=== PATIENT | male | born 1965 | race African-American/Black ===

== ENCOUNTER 2017-09-04 03:00 | Observation (INO) | payer OTHER ==
[2017-09-04] MEDS ORDERED: Furosemide 40 MG/4 ML VIAL ONE (04:37)
--- NOTE | 2017-09-04 06:02 | HP ---
DATE OF ADMISSION: 09/04/2017 TIME OF SERVICE: 0430 PRIMARY CARE PHYSICIAN: Dr. Kelby Ndiaye PRIMARY SOFTWARE DEPLOYMENT ENGINEER: Dr. Sudarshan Ontiveros CHIEF COMPLAINT: Shortness of breath. HISTORY OF PRESENT ILLNESS: Mr. Lyons is a 51-year-old gentleman with a history of pneumonia in t he past, end-stage renal disease, dialyzed Monday, Monday and Monday at [facility] in [place] as well as paroxysmal atrial fibrillation, hypothyroidism, hypertension, and gout, presented to the [facility] in [place] complaining of shortness of breath. The patient states he was having shortness of breath for about 24 hours. He was seen in the [facility] ER, diagnosed with pneumonia, given Rocephin 2 grams. CBC and CMP were normal for the end-stage renal disease, he was subsequently transferred here. On arrival, he was reportedly 99% on room air, labs were reviewed. A chest x-ray showed bilateral op acities consistent with volume overload and I was called for admission. On my evaluation, the patient did complain of cough that is nonproductive. No hemoptysis. He had be en tolerating dialysis regularly as scheduled without any truncated visits. No other current complai nts. PAST MEDICAL HISTORY: 1. End-stage renal disease, on hemodialysis Monday, Monday, Monday in [place] at [facility]. 2. Atrial fibrillation, paroxysmal. 3. Hypothyroidism. 4. Hypertension. 5. Gout, it has been a long time since his last flare. 6. Benign prostatic hypertrophy. PAST SURGICAL HISTORY: 1. Include DC cardioversion for atrial fibrillation. 2. Right forearm fistula creation. HOME MEDICATIONS: 1. Allopurinol 100 mg p.o. daily. 2. Dialyvite 1/100 1 p.o. daily. 3. Metoprolol tartrate 50 mg p.o. b.i.d. 4. Levothyroxine 25 mcg daily. 5. Nifedipine 60 mg daily. 6. Terazosin 0.8 mg p.o. at bedtime. 7. Renvela 800 mg p.o. t.i.d. with meals. ALLERGIES: NKDA. FAMILY HISTORY: Negative for clotting or bleeding disorder, no immune dysfunction, no premature jenny nary disease. SOCIAL HISTORY: No for habits x3. REVIEW OF SYSTEMS: A 10-point review of systems was performed, negative for all systems except as pe r HPI. PHYSICAL EXAMINATION: VITAL SIGNS: Temperature 98.4, pulse 105, blood pressure 163/91, respiratory 20, satting 89% on room air, 94% on 2 liters, 100% on 2 liters when I was in there. GENERAL: He is awake. He is alert. He is oriented x3, well-developed, well-nourished Ameri can male appears to be in no distress. HEENT: Normocephalic, atraumatic. Pupils equal, round, react to light bilaterally. Mucous membrane s are moist. There are no visible lesions or thrush. NECK: Supple. He has no lymphadenopathy, no JVD, no thyromegaly. No carotid bruit. LUNGS: Clear to auscultation bilaterally anteriorly. Posteriorly he has some pain bibasilar crackle s and crackles in the bilateral upper lung arellano. There are no wheezes, no rales, no rhonchi. No p rolonged expiratory phase CARDIOVASCULAR: There is a faint 2/6 systolic ejection murmur at the right upper sternal border. EXTREMITIES: Show no cyanosis, no clubbing, he has got trace pedal edema bilaterally. He has got 1+ dorsalis pedis, and posterior tibial pulses bilaterally. SKIN: Warm, moist, and well perfused. He has no other rashes or lesions. MUSCULOSKELETAL: Normal to inspection. Large joints appear normal. There is no palpable effusion. No inflammation. NEUROLOGIC: Cranial nerves II-XII are grossly intact, he has normal 5/5 strength in all 4 extremitie s. There are no focal deficits and normal speech pattern. LABORATORY DATA: Sodium 141, potassium 4.0, chloride 100, bicarbonate 25, BUN 61, creatinine 12.17, calcium 9.3, glucose 103. Liver functions are completely within normal limits. CBC showed white blood cell count of 9.9, hemoglobin 10.5, hematocrit is 32.3, platelet count is 238, 000. He has normal differential to his white count. VBG showed pH 7.5 with a pCO2 of 34, pO2 of 46 and bicarbonate of 46. CK-MB normal 2.2, troponin I 0.049. INR is 1.0. Chest x-ray showed volume overload with cephalization. I do not see any discrete infiltrates at the bases and the costophrenic angles are spared. ASSESSMENT AND PLAN: 1. End-stage renal disease, on hemodialysis Monday, Monday, Monday. 2. Acute hypoxemic respiratory failure. 3. Volume overload. 4. Hypertension. 5. Paroxysmal atrial fibrillation, currently in sinus rhythm. 6. Hypothyroidism. 7. Benign prostatic hypertrophy. 8. Gout. Continue his home medications, I alerted Dr. Ontiveros of the patient's presence for dialysis today. He s hould be able to go home after dialysis. I have not continued antibiotics, he did receive a dose in the [place] ER.
[2017-09-04] MEDS ORDERED: Ondansetron HCl/PF 4 MG/2 ML Vial IVP PRN ×2 (06:03→06:11)
[2017-09-04] MEDS ORDERED: Ondansetron ODT 4 MG TAB SL PRN (06:03)
[2017-09-04] MEDS ORDERED: Acetaminophen 325 MG TAB PO PRN (06:11)
[2017-09-04] MEDS ORDERED: HYDROcodone/Acetaminophen 5/325 mg Tablet PO PRN (06:11)
[2017-09-04] MEDS ORDERED: Ondansetron ODT 4 MG TAB PO PRN (06:11)
[2017-09-04] MEDS ORDERED: Levothyroxine Sodium 25 MCG TAB PO SCH (06:15)
[2017-09-04 06:24] VITALS: BMI 27.3
[2017-09-04] MEDS ORDERED: Famotidine 20 MG TAB PO SCH (09:00)
[2017-09-04] MEDS ORDERED: Metoprolol Tartrate 50 MG TAB PO SCH (09:00)
[2017-09-04] MEDS ORDERED: NIFEdipine XL 60 MG TAB PO SCH (09:00)
[2017-09-04] MEDS: Sevelamer Carbonate 800 MG TAB PO SCH ×2 (09:00→12:49)
[2017-09-04] MEDS ORDERED: Allopurinol 100 MG TAB PO SCH (09:00)
[2017-09-04] MEDS ORDERED: Heparin 10,000 UNITS/ 10 ML VIAL ONE (10:00)
--- NOTE | 2017-09-04 12:01 | CON ---
DATE OF CONSULTATION: 09/04/2017 REFERRING PHYSICIAN: Dr. Eduardo Ochoa REASON FOR CONSULT: End-stage renal disease evaluation and care. REASON FOR ADMISSION: Shortness of breath. HISTORY OF PRESENT ILLNESS: This is a 51-year-old male with a history of atrial fibrillation, hypoth yroidism, hypertension, gout, came to the hospital with shortness of breath. The patient gets dialys is Monday, Monday, and Monday. Last dialysis was Monday and he even left 2.5 below his dry weight . He denies any increased fluid intake over the weekend. He is usually reliable and does not have a huge fluid gain between dialysis. The patient was initially thought to have a pneumonia, but chest x-ray is having bilateral fluid overload and is getting dialysis today and is due for dialysis this e vening. No fever reported. He has a dry cough. No other symptoms, no hemoptysis. No chills. No s kin rash. PAST MEDICAL HISTORY: End-stage renal disease, atrial fibrillation, hypothyroidism, hypertension, g out, BPH. PAST SURGICAL HISTORY: DC cardioversion, a fistula placement. HOME MEDICATIONS: Lipitor, Dialyvite, metoprolol, levothyroxine, nifedipine, terazosin. ALLERGIES: No known drug allergies. FAMILY HISTORY: No history of any kidney disease. SOCIAL HISTORY: No smoking, alcohol, drug abuse. REVIEW OF SYSTEMS: The following complete review of systems was negative, unless otherwise mentioned in the HPI or below: Constitutional: Weight loss or gain, ability to conduct usual activities. Skin: Rash, itching. Eyes: Double vision, pain. ENT/Mouth: Nose bleeding, neck stiffness, pain, tenderness. Cardiovascular: Palpitations, dyspnea on exertion, orthopnea. Respiratory: Shortness of breath, wheezing, cough, hemoptysis, fever or night sweats. Gastrointestinal: Poor appetite, abdominal pain, heartburn, nausea, vomiting, constipation, or diarrhea. Genitourinary: Urgency, frequency, dysuria, nocturia. Musculoskeletal: Pain, swelling. Neurologic/Psychiatric: Anxiety, depression. Allergy/Immunologic: Skin rash, bleeding tendency. PHYSICAL EXAMINATION: GENERAL: This is a well-built male in no apparent distress. VITAL SIGNS: Temperature 98.1, pulse 90, respirations 18, blood pressure 140/76. HEENT: Atraumatic, normocephalic. Oral mucosa is moist. NECK: Supple, no masses. CARDIOVASCULAR: S1, S2 heard. Rate and rhythm regular. RESPIRATORY: Had bilateral lower lobe crackles. GASTROINTESTINAL: Abdomen is soft. MUSCULOSKELETAL: No tenderness. No edema. SKIN: No rash. NEUROLOGIC: Alert, awake. PSYCHIATRIC: Normal mood and affect. LABORATORY: Hemoglobin is 10.5, potassium 4.0, BUN 61, creatinine is 12.1. ASSESSMENT AND PLAN: 1. End-stage renal disease, on hemodialysis Monday, Monday, and Monday with possible fluid overlo ad. Plan is to have dialysis. Patient was seen during dialysis, tolerating well. 2. Acute hypoxic respiratory failure most likely from for fluid overload. 3. Volume overload. 4. Hypertension. 5. Anemia. 6. Edema, controlled. Plan is to have dialysis today. Advised to limit fluid intake and will follow.
--- NOTE | 2017-09-04 14:45 | DIS ---
DATE OF ADMISSION: 09/04/2017 DATE OF DISCHARGE: 09/04/2017 PRIMARY CARE PHYSICIAN: Kelby Ndiaye M.D. DISCHARGE DIAGNOSIS: Volume overload. CONSULTATION DURING THIS HOSPITALIZATION: Nephrology, Dr. Andrew. HOSPITAL COURSE: Mr. Lyons is a pleasant 51-year-old gentleman who was admitted to [facility] on 09/04/2017 for volume overload. Please refer to the admitting physician's his tory and physical note for further details. He was seen by Nephrology Service and underwent hemodial ysis. He improved symptomatically. He is being discharged home in a stable condition. No changes were made to his preadmission home medications. Many thanks for allowing me to participate in your patient's care. Please feel free to contact me wi th any questions or concerns. DISCHARGE DESTINATION: Home.
[2017-09-04 16:35] VITALS: BP 141/81; TEMP 97.4
[2017-09-04] MEDS ORDERED: Terazosin HCl 1 MG CAP PO SCH (21:00)
[2017-09-05] MEDS ORDERED: Levothyroxine Sodium 25 MCG TAB PO SCH (06:00)
== END 2017-09-04 17:18 | disposition home or self-care (01) ==
LOC: ERS 03:00 → 2SW 04:40
PROVIDERS: ADMIT Internal Medicine Infectious Disease; ATTEND Internal Medicine Infectious Disease
DX: E87.70 Fluid overload, unspecified (principal); I12.0 Hypertensive chronic kidney disease with stage 5 chronic kidney disease or end stage renal disease; N18.6 End stage renal disease; I48.0 Paroxysmal atrial fibrillation; E03.9 Hypothyroidism, unspecified; M10.9 Gout, unspecified; N40.0 Benign prostatic hyperplasia without lower urinary tract symptoms; J96.01 Acute respiratory failure with hypoxia; Z79.899 Other long term (current) drug therapy; Z99.2 Dependence on renal dialysis
CPT/HCPCS: 90935; 93005; 96374; G0257; J1644; J1940

== ENCOUNTER 2017-09-28 15:02 | Emergency (ER) | payer OTHER ==
[2017-09-28] MEDS ORDERED: Metoprolol Tartrate 5 MG/5 ML VIAL ONE ×3 (15:48→16:00)
[2017-09-28 15:57] LABS: #Eosinphils 0.2 thou/uL (0.0-0.7); #Lymphocytes 1.4 thou/uL (1.20-3.40); #Monocytes 0.5 thou/uL (0.11-0.59); #Neutrophils 4.3 thou/uL (1.40-6.50); %Basophils 0.4 % (0.0-1.0); %Lymphocytes 21.6 % (21.0-51.0); %Monocytes 8.3 % (0.0-10.0); %Neutrophils 66.7 % (42.0-75.0); Hemoglobin 9.9 g/dL (14.0-18.0); Mean Corpuscular Hemoglobin 28.8 pg (27.0-31.0); Mean Corpuscular Volume 87.2 fl (80.0-94.0); Mean Platelet Volume 8.3 fL (7.4-10.4); Platelet Count 237 thou/uL (130-400); RBC Distribution Width 18.7 % (11.5-14.5); Red Blood Cell (RBC) Count 3.43 mill/uL (4.70-6.10); White Blood Cell (WBC) Count 6.5 thou/uL (4.8-10.8)
[2017-09-28 16:19] LABS: Anion Gap 17 mmol/L (10-20); BUN (Urea Nitrogen) 47 mg/dL (8.9-20.6); CK (CPK) 341 U/L (30-200); Calc. Creatinine Clearance 0 mL/min (70-130); Carbon Dioxide 33 mmol/L (22-29); Chloride 96 mmol/L (98-107); Estimated GFR-MDRD 7; Glucose 125 mg/dL (70-105); Magnesium 2.2 mg/dL (1.6-2.6); Potassium 3.9 mmol/L (3.5-5.1); Sodium 142 mmol/L (136-145)
[2017-09-28 16:23] LABS: CKMB 5.3 ng/mL (0-6.6); Troponin I 0.078 ng/mL (< 0.028)
== END 2017-09-28 17:31 | disposition home or self-care (01) ==
LOC: ERS 15:02
DX: I48.91 Unspecified atrial fibrillation (principal); E03.9 Hypothyroidism, unspecified; I10 Essential (primary) hypertension; M10.9 Gout, unspecified; Z79.899 Other long term (current) drug therapy
CPT/HCPCS: 80048; 82550; 82553; 83735; 84443; 84484; 85025; 93005; 96361; 96374

== ENCOUNTER 2017-10-23 11:10 | Inpatient (IN) | payer OTHER ==
[2017-10-23] MEDS ORDERED: Diltiazem 125 MG/25 ML ONE (11:44)
--- NOTE | 2017-10-23 14:06 | HP ---
PRIMARY CARE PHYSICIAN: Kelby Ndiaye M.D. REASON FOR ADMISSION: Transfer from [facility] for atrial fibrillation with RVR and dyspnea. HISTORY OF PRESENT ILLNESS: A 51-year-old -[place] male who has underlying history of end-st age renal disease on hemodialysis Monday, Monday, and Monday as well as history of paroxysmal atri al fibrillation and hypertension who initially went to [facility] for evaluation of generalized weakness, shortness of breath. Patient supposed to get dialysis today, but before he get s dialysis, he was feeling more weak, more short of breath and that is why he decided to go to the [facility] emergency room at [place] where he was found with atrial fibrillation with RVR. He was eval uated with routine blood tests and found with elevated BNP. The patient was transferred to our emerg ency room. His rate was under control. He did not require any specific medication. At [facility], he was given aspirin and Lovenox 1 mg per kg, nitroglycerin 3 times was given. When he presented to our emergency room, he was hemodynamically stable. He was having fluctuating he art rate. Patient is following Dr. Kenny as an outpatient basis. Today, he was not able to go fo r his regular dialysis schedule. REVIEW OF SYSTEMS: The following complete review of systems was negative, unless otherwise mentioned in the HPI or below: Constitutional: Weight loss or gain, ability to conduct usual activities. Skin: Rash, itching. Eyes: Double vision, pain. ENT/Mouth: Nose bleeding, neck stiffness, pain, tenderness. Cardiovascular: Palpitations, dyspnea on exertion, orthopnea. Respiratory: Shortness of breath, wheezing, cough, hemoptysis, fever or night sweats. Gastrointestinal: Poor appetite, abdominal pain, heartburn, nausea, vomiting, constipation, or diarr hea. Genitourinary: Urgency, frequency, dysuria, nocturia. Musculoskeletal: Pain, swelling. Neurologic/Psychiatric: Anxiety, depression. Allergy/Immunologic: Skin rash, bleeding tendency. Please see my HPI for pertinent positive and negative. All other review of systems reviewed and nega tive except as mentioned in the HPI. PAST MEDICAL HISTORY: ESRD on hemodialysis Monday, Monday, Monday in medicine at [facility], hyperten gabriela, hypothyroidism, gout, benign enlargement of prostate, paroxysmal atrial fibrillation, anemia of renal disease. PAST SURGICAL HISTORY: DC cardioversion for atrial fibrillation and right forearm AV fistula. PAST PSYCHIATRIC HISTORY: Reviewed and negative. ALLERGIES: No known drug allergy. FAMILY HISTORY: No strong family history of premature coronary artery disease, stroke or cancer. SOCIAL HISTORY: Patient lives at home with family. No history of tobacco, alcohol or illicit drug a buse. CURRENT HOME MEDICATIONS: Allopurinol 100 mg p.o. daily, vitamin B complex 1 tablet p.o. daily, Synt hroid 25 mcg p.o. daily, metoprolol 50 mg p.o. b.i.d., Procardia-XL 60 mg p.o. daily, terazosin 2 mg p.o. at bedtime. EMERGENCY ROOM COURSE: At [facility], patient has received 3 nitroglycerin sublingu als and Lovenox 1 mg per kg. PHYSICAL EXAMINATION: VITAL SIGNS: On arrival to our emergency room, blood pressure 126/98, pulse 119 irregular, respirato ry rate 22, temperature 97.8, saturation 97% on room air, weight 83.5 kilograms. GENERAL: Patient is currently alert, awake, no obvious acute distress. HEAD: Normocephalic, atraumatic. EYES: Pupils round, reactive to light. Extraocular muscle intact. ENT: Oropharynx within normal limit. Moist mucous membranes. No oral lesion, no pharyngeal erythem a, no exudate. NECK: Supple, no JVD, no thyromegaly, no carotid bruit, no jugular venous distention. LUNGS: Clear to auscultation without any rhonchi or rales. CARDIAC: S1, S2, irregularly irregular. No murmur elicited, no gallop, no rub. ABDOMEN: Soft, bowel sounds present, nontender, nondistended. No organomegaly, no mass, no suprapub ic tenderness. BACK: Examination unremarkable, no CVA tenderness. EXTREMITIES: Upper extremity passive movement of all joints are normal. Lower extremities: No dena a. Good peripheral pulsation. SKIN: No skin rash. HEMATOLOGICAL SYSTEM: No lymphadenopathy. PSYCHIATRIC: Normal affect. IMAGING DATA AND SIGNIFICANT LABORATORY DATA: EKG showing atrial fibrillation with rapid ventricular response. CBC: WBC 5.3, hemoglobin 11.2, and platelet 169. INR 1.1. BMP: Sodium 140, potassium 5.0, chloride 97, carbon dioxide 23, anion gap 25, BUN 56, creatinine 12.35, glucose 120, calcium 10. 0, and magnesium 2.2. LFT: AST 36, ALT 69, alkaline phosphatase 91, albumin 3.5, CK 80, CK-MB 1.9, troponin 0.044. BNP 3293. Urinalysis: Leukocyte esterase small. ASSESSMENT AND PLAN/IMPRESSION: 1. Atrial fibrillation with rapid ventricular response, paroxysmal atrial fibrillation, currently ra te controlled. 2. Dyspnea, multifactorial etiology. 3. End-stage renal disease on hemodialysis, missed hemodialysis today. 4. Anemia of renal disease. 5. Elevated troponin, chronically elevated. 6. Asymptomatic urinary tract infection. 7. Benign enlargement of prostate. 8. Hypertension. 9. Hypothyroidism. 10. Gout. PLAN: Observation to telemetry floor. Nephrology will be consulted for dialysis. We will continue metoprolol 50 mg p.o. b.i.d. We will resume home medication while in hospital including allopurinol 100 mg t.i.d. We will also continue Procardia-XL 60 mg p.o. daily, Hytrin 2 mg p.o. at bedtime and S ynthroid 25 mcg p.o. daily. We will observe on telemetry floor. We will also start Cipro 250 mg p.o . b.i.d. for asymptomatic UTI. We will send urine culture. We will do serial cardiac enzymes and we will repeat labs tomorrow. If patient is doing very well overnight, then we will consider dischargi ng him home tomorrow. We will obtain echocardiography during this admission. Plan of care discussed with the patient in detail.
[2017-10-23] MEDS ORDERED: Acetaminophen 325 MG TAB PO PRN (14:10)
[2017-10-23] MEDS ORDERED: Zolpidem Tartrate 5 MG TAB PO PRN (14:10)
[2017-10-23] MEDS ORDERED: Mag-Al 1200 mg/1200 mg/30 ML UDCUP PO PRN (14:10)
[2017-10-23] MEDS ORDERED: Senokot 8.6 MG TAB PO PRN (14:10)
[2017-10-23] MEDS ORDERED: Ondansetron HCl/PF 4 MG/2 ML Vial IVP PRN (14:10)
[2017-10-23] MEDS ORDERED: Ondansetron ODT 4 MG TAB PO PRN (14:10)
[2017-10-23] MEDS ORDERED: Milk Of Magnesia 30 ML UDCUP PO PRN (14:10)
[2017-10-23] MEDS ORDERED: Loperamide HCl 2 MG CAP PO PRN (14:10)
[2017-10-23] MEDS ORDERED: HYDROcodone/Acetaminophen 5/325 mg Tablet PO PRN (14:10)
[2017-10-23 14:23] LABS: Troponin I 0.054 ng/mL (< 0.028)
[2017-10-23 14:47] VITALS: BMI 28.5
--- NOTE | 2017-10-23 16:21 | CON ---
DATE OF CONSULTATION: 10/23/2017 NEPHROLOGY CONSULTATION REASON FOR CONSULTATION: Congestive heart failure and end-stage renal disease. HISTORY OF PRESENT ILLNESS: This is a very pleasant 51-year-old gentleman who presented for dialysis . The patient was noted to be in atrial fibrillation and had severe congestive heart failure and sev ere dyspnea. The patient can give no further detailed history. PAST MEDICAL HISTORY: End-stage renal disease, on hemodialysis Monday, Monday, Monday, hypertensi on, atrial fibrillation, anemia, renal disease, history of cardioversion, right AV fistula, tunneled dialysis catheter, gout. SOCIAL HISTORY: No alcohol or drug use. FAMILY HISTORY: Negative for ESRD. ALLERGIES: Reviewed. HOME MEDICATIONS: Reviewed. REVIEW OF SYSTEMS: Fifteen point review of systems was performed and negative except positives noted above. General: Weakness-. Head: Headache-. Neck: No swelling or lumps. Nose: No epistaxis or dischar ge. Eyes: No diplopia or pain. Respiratory: Dyspnea-. Cardiovascular: Chest pain-. Gastrointes tinal: Nausea-. Genitourinary/Gynecology: Hematuria-. Musculoskeletal: No joint pain. Neuropsyc hiatric Systems: No suicidal ideation. No ideation. Skin: Denies any rash or ulcer. Constitution al: No fever or chills. PHYSICAL EXAMINATION: GENERAL: Patient is awake, alert. VITAL SIGNS: Afebrile, pulse 90, breathing 16, blood pressure 126/98. GENERAL APPEARANCE AND MENTAL STATUS: Fair. HEAD/NECK: Normocephalic. Atraumatic. EYES: EOMI. No deformity. EARS: Clear. No ulcers. NOSE: Intact. No lesions. MOUTH: Clear. No discharge. THROAT: Clear. No exudate. LUNGS: Clear. No crackles. CARDIAC: S1, S2. No rub. ABDOMEN: Benign. BS+. GENITALIA/RECTUM: Perez absent. BACK/EXTREMITIES: Edema 0+ Ulcer- NEUROLOGICAL: Alert and motor intact. SKIN: Rash- Bruise- LYMPHATICS: Edema- Ulcer- LABORATORY DATA: Potassium was 5.0. ASSESSMENT AND RECOMMENDATIONS: 1. Stage 6 chronic kidney disease, continue hemodialysis. 2. Hypertension, stable. 3. Anemia, stable. 4. Medications based on glomerular filtration rate are appropriate 5. Atrial fibrillation management per Cardiology.
[2017-10-23 17:36] LABS: Troponin I 0.069 ng/mL (< 0.028)
[2017-10-23] MEDS: Apixaban 2.5 MG TAB PO SCH (20:46)
[2017-10-23] MEDS: Cipro 250 MG TAB PO SCH (20:47)
[2017-10-23] MEDS: Terazosin HCl 1 MG CAP PO SCH (20:47)
[2017-10-23] MEDS: Metoprolol Tartrate 50 MG TAB PO SCH (20:47)
[2017-10-23] MEDS ORDERED: TERAZOSIN HCL 2 MG PO SCH (21:00)
[2017-10-24 04:43] LABS: #Basophils 0.1 thou/uL (0.0-0.2); #Eosinphils 0.5 thou/uL (0.0-0.7); #Lymphocytes 1.3 thou/uL (1.20-3.40); #Monocytes 0.5 thou/uL (0.11-0.59); #Neutrophils 1.4 thou/uL (1.40-6.50); %Eosinophils 13.6 % (0.0-10.0); %Lymphocytes 34.3 % (21.0-51.0); %Monocytes 12.7 % (0.0-10.0); %Neutrophils 37.4 % (42.0-75.0); Hemoglobin 11.6 g/dL (14.0-18.0); Mean Corpuscular HGB CONC 31.6 g/dL (32.0-36.0); Mean Corpuscular Hemoglobin 29.1 pg (27.0-31.0); Mean Corpuscular Volume 92.2 fl (80.0-94.0); Mean Platelet Volume 9.1 fL (7.4-10.4); Platelet Count 141 thou/uL (130-400); Red Blood Cell (RBC) Count 3.98 mill/uL (4.70-6.10); White Blood Cell (WBC) Count 3.7 thou/uL (4.8-10.8)
[2017-10-24 04:58] LABS: Albumin 3.1 g/dL (3.5-5.0); Anion Gap 13 mmol/L (10-20); BUN (Urea Nitrogen) 35 mg/dL (8.9-20.6); Calc. Creatinine Clearance 12 mL/min (70-130); Calcium 9.6 mg/dL (7.8-10.44); Carbon Dioxide 30 mmol/L (22-29); Cardiac Risk 2.5 (Less than 4.5); Chloride 98 mmol/L (98-107); Cholesterol 85 mg/dl (< 200 Desired); Estimated GFR-MDRD 7; Glucose 96 mg/dL (70-105); HDL Cholesterol 34 mg/dL (>60 Neg Risk); LDL Cholesterol, Calculated 41 mg/dL; Phosphorus 6.1 mg/dL (2.3-4.7); Potassium 3.9 mmol/L (3.5-5.1); Sodium 137 mmol/L (136-145); Triglycerides 48 mg/dL (Less than 150)
[2017-10-24] MEDS: Levothyroxine Sodium 25 MCG TAB PO SCH (05:59)
[2017-10-24] MEDS: Cipro 250 MG TAB PO SCH ×2 (05:59→22:14)
[2017-10-24] MEDS: Stress 600 With Zinc 1 TAB PO SCH (07:56)
[2017-10-24] MEDS: Metoprolol Tartrate 50 MG TAB PO SCH (07:56)
[2017-10-24] MEDS: Allopurinol 100 MG TAB PO SCH (07:56)
[2017-10-24] MEDS: Apixaban 2.5 MG TAB PO SCH (07:57)
[2017-10-24] MEDS: Famotidine 20 MG TAB PO SCH (07:57)
[2017-10-24] MEDS ORDERED: BIOT PO SCH (09:00)
[2017-10-24] MEDS ORDERED: Allopurinol 300 MG TAB PO SCH (09:00)
[2017-10-24] MEDS ORDERED: Non-Formulary Item 1 EACH (Nifedipine [Nifedipine Er] 60 MG) PO SCH (09:00)
[2017-10-24] MEDS ORDERED: B COMPLEX PO SCH (09:00)
[2017-10-24] MEDS ORDERED: [UNRECOGNIZED DRUG - OTHER] PO SCH (09:00)
[2017-10-24] MEDS ORDERED: ZINC PO SCH (09:00)
[2017-10-24] MEDS ORDERED: NIFEdipine XL 60 MG TAB PO SCH (09:00)
[2017-10-24] MEDS ORDERED: FOLIC PO SCH (09:00)
[2017-10-24] MEDS ORDERED: Aspirin 325 MG TAB PO SCH (09:00)
--- NOTE | 2017-10-24 12:39 | PRG ---
DATE OF SERVICE: 10/24/2017 SUBJECTIVE: A 51-year-old gentleman being seen for end-stage renal disease. The patient denies any nausea, vomiting or chest pain. PHYSICAL EXAMINATION: GENERAL: Patient is awake, alert. VITAL SIGNS: Afebrile, pulse 94, breathing 16, blood pressure 124/80. HEAD/NECK: Normocephalic. Atraumatic. EYES: EOMI. No deformity. EARS: Clear. No ulcers. NOSE: Intact. No lesions. MOUTH: Clear. No discharge. THROAT: Clear. No exudate. LUNGS: Clear. No crackles. CARDIAC: S1, S2. No rub. ABDOMEN: Benign. BS+. GENITALIA/RECTUM: Perez absent. BACK/EXTREMITIES: Edema 0+ Ulcer- NEUROLOGICAL: Alert and motor intact. SKIN: Rash- Bruise- LYMPHATICS: Edema- Ulcer- LABORATORY DATA: None today. ASSESSMENT AND PLAN: 1. Stage 6 chronic kidney disease. Plan hemodialysis on Monday, Monday, Monday. 2. Hypertension, stable. 3. Anemia, stable. 4. Secondary hyperparathyroidism. Continue low phosphorus diet.
--- NOTE | 2017-10-24 14:56 | PDOC.PN ---
- Subjective Encounter Start Date: 10/24/17 Encounter Start Time: 14:55 Mr. Lyons was seen today in follow-up. He says he feels better today. He is less short of breath, and is not having any chest discomfort. - Objective Resuscitation Status: Resuscitation Status FULL:Full Resuscitation MAR Reviewed: Yes Vital Signs & Weight: Vital Signs (12 hours) Temp Pulse Resp BP BP Pulse Ox 10/24/17 11:34 97.4 F L 94 20 124/80 98 10/24/17 07:56 103 H 10/24/17 07:32 98.1 F 103 H 16 112/79 98 10/24/17 07:10 98.5 F 96 18 10/24/17 04:25 96 18 102/68 98 Weight Weight 187 lb 6.287 oz I&O: 10/23/17 10/24/17 10/25/17 06:59 06:59 06:59 Intake Total 100 300 Balance 100 300 Result Diagrams: 10/24/17 04:30 10/24/17 04:30 Phys Exam - Physical Examination HEENT: PERRLA Respiratory: no wheezing, no rales, no rhonchi, clear to auscultation bilateral Cardiovascular: irregular Gastrointestinal: soft, non-tender, positive bowel sounds Musculoskeletal: no edema Dx/Plan (1) Atrial fibrillation with RVR Code(s): I48.91 - UNSPECIFIED ATRIAL FIBRILLATION Status: Acute (2) Volume overload Code(s): E87.70 - FLUID OVERLOAD, UNSPECIFIED Status: Acute Comment: Resolved after urgent HD (3) ESRD (end stage renal disease) on dialysis Code(s): N18.6 - END STAGE RENAL DISEASE; Z99.2 - DEPENDENCE ON RENAL DIALYSIS Status: Chronic Comment: HD per renal service (4) HTN (hypertension) Code(s): I10 - ESSENTIAL (PRIMARY) HYPERTENSION Status: Chronic Qualifiers: Comment: Stable currently, resume home BP regimen - Plan * AFIB with RVR- his heart rate is a little better- however he still admits to some exercise intolerance * ESRD- he is stable, on HD. * Volume overload- improved after dialysis * HTN- blood pressure is stable
[2017-10-24] MEDS ORDERED: Carvedilol 6.25 MG TAB PO SCH (19:45)
[2017-10-24] MEDS: Terazosin HCl 1 MG CAP PO SCH (22:14)
[2017-10-24] MEDS: Apixaban 5 MG TAB PO SCH (22:14)
[2017-10-24] MEDS: Amiodarone 200 MG TAB PO SCH (22:14)
[2017-10-24] MEDS: Lisinopril 10 MG TAB PO SCH (22:15)
--- NOTE | 2017-10-25 01:47 | CON ---
DATE OF CONSULTATION: 10/24/2017 HISTORY: Faby Lyons is a 51-year-old black male that I have followed intermittently since 10/1996, although, the last time I saw him was in 12/2011. In 10/1996, he became dizzy and confused and had a blood pressure of 228/135, pulse 129 when he was seen in the emergency room. He was in sinus tachycardia. He had peripheral edema and was diuresed, and his creatinine fell from 1.9 to 1.6 at the time of discharge. Cardiac enzymes were negative. He did have anisocoria and was seen by Neurology and it was felt this was due to old trauma. Echocardiogram revealed severe left ventricular dysfunction, moderate left ventricular hypertrophy, ejection fraction of 35%, moderate tricuspid regurgitation, [id number] mitral regurgitation, and mild pulmonic insufficiency. He was then followed up in [place]. He presented again in 03/2000 with some abdominal discomfort, was found to be in atrial fibrillation with rapid ventricular response. Once he was given digoxin, his heart rate slowed and he felt better. Echocardiogram revealed ejection fraction of 25%-30% with atrial fibrillation. He was started on Coumadin and it was felt that he should be anticoagulated for 6-8 weeks prior to elective cardioversion. He was to undergo electrical cardioversion; however , his [id number] and he never returned for followup. He was then admitted in 12/2002 at [facility] with testicular swelling. Echocardiogram at that time revealed ejection fraction of 50%-55% with left atrial enlargement, left ventricular hypertrophy, and severe mitral regurgitation. He underwent transesophageal echo followed by electrical cardioversion and returned to sinus rhythm. In 02/2012, he was hospitalized here with chest pain and underwent Cardiolite stress test, which revealed no evidence of reversible ischemia. Echo revealed ejection fraction of 50%-55% with evidence for diastolic dysfunction. He was in normal sinus rhythm during that admission. In 09/2013, he was admitted with progressive renal failure and institution of hemodialysis. He apparently continued in sinus rhythm at that time. He had an AV fistula placed in the right arm. In 12/2016, he was hospitalized with acute hypoxic respiratory failure secondary to volume overload. Again in 08/2017, he was admitted with volume overload. He apparently was in normal sinus rhythm during those admissions. He has been off the Coumadin for some time. He then was admitted yesterday, presenting to [facility] complaining of increased weakness. He was found to be in atrial fibrillation with rapid ventricular response. He was short of breath, but denied any chest discomfort. In the [facility], he was given Lovenox 1 mg/kg. Cardiology consultation was requested for his atrial fibrillation. PAST MEDICAL HISTORY: Hypertension; hypothyroidism; gout; benign prostatic hypertrophy; atrial fibrillation in the past with cardioversion in 2002 and apparently has been in sinus rhythm since that time; anemia of renal disease; end-stage renal disease, on dialysis. OPERATIONS: Right forearm AV fistula. MEDICATIONS AT HOME: Include allopurinol 100 daily, levothyroxine 25 mcg daily , metoprolol 50 b.i.d., nifedipine 60 daily, Renvela 1600 mg t.i.d., terazosin 2 mg at bedtime. ALLERGIES: None. SOCIAL HISTORY: He does not smoke or drink. REVIEW OF SYSTEMS: Twelve-point review of systems is otherwise unremarkable. PHYSICAL EXAMINATION: VITAL SIGNS: Blood pressure 142/75; pulse of 89, irregularly irregular. HEENT: PERRL. NECK: Supple. CHEST: Clear. CARDIAC: S1 and S2 are normal without any S3 or S4. There is a 1/6 holosystolic murmur at the apex. Carotid upstroke was normal without bruits. ABDOMEN: Normal bowel sounds without tenderness, organomegaly. EXTREMITIES: Revealed no clubbing, cyanosis, or edema. NEUROLOGIC: Grossly intact. SKIN: Warm and dry. LABORATORY DATA: EKG reveals atrial fibrillation with fast ventricular response of 119 per minute, nonspecific intraventricular conduction delay, nonspecific ST and T-wave changes. Echocardiogram revealed mild left ventricular enlargement, severe left ventricular dysfunction with ejection fraction of 15%-20%, moderate left atrial enlargement, mild right atrial enlargement, severe mitral regurgitation, aortic valvular sclerosis, mild aortic regurgitation, severe tricuspid regurgitation, and moderate pulmonic regurgitation. Hemoglobin 11.6, hematocrit 36.7, white count 3700, platelets 141,000. INR 1.1 , sodium 137, potassium 3.9, chloride 98, carbon dioxide 30, BUN 35, creatinine 9.2. Troponin I is as high as 0.069, cholesterol 85, triglycerides 48, HDL 34, LDL 41. BNP 3293.4. AST 36, ALT 69. TSH in 09/2017 was normal. IMPRESSION: 1. Recurrence of atrial fibrillation. He was in atrial fibrillation in 2002, underwent electrical cardioversion, and has pretty much been in sinus rhythm since that time until this admission. 2. Severe left ventricular dysfunction with fall in his ejection fraction from 50%-55% to 15%-20% at the present time. 3. Longstanding hypertension. 4. Hypothyroidism. 5. Gout. 6. Benign prostatic hypertrophy. 7. End-stage renal disease, on dialysis. PLAN: Mr. Lyons will be anticoagulated with Eliquis 5 mg b.i.d. With his severe left ventricular dysfunction, metoprolol and Procardia will be discontinued, and instead he will be placed on carvedilol and increasing doses of lisinopril. Also, he will be loaded with amiodarone and consideration of electrical cardioversion after loading for 2-3 days. Risk of amiodarone were discussed including , eye toxicity, liver toxicity, thyroid toxicity, lung toxicity including pulmonary fibrosis leading to , etc. We also discussed transesophageal echo and electrical cardioversion and risk of this including reverting back to atrial fibrillation, worse heart rhythm, embolic event including stroke, esophageal damage, teeth damage, etc. MTDD
[2017-10-25] MEDS: Cipro 250 MG TAB PO SCH ×2 (05:53→20:43)
[2017-10-25] MEDS: Levothyroxine Sodium 25 MCG TAB PO SCH (05:53)
[2017-10-25] MEDS: Stress 600 With Zinc 1 TAB PO SCH (09:00)
[2017-10-25] MEDS: Carvedilol 6.25 MG TAB PO SCH ×2 (09:00→17:35)
[2017-10-25] MEDS: Amiodarone 200 MG TAB PO SCH ×2 (09:00→14:32)
--- NOTE | 2017-10-25 11:35 | PRG ---
DATE OF SERVICE: 10/25/2017 SUBJECTIVE: A 51-year-old being seen for end-stage renal disease. The patient denies any nausea, vo miting or chest pain. PHYSICAL EXAMINATION: GENERAL: Patient is awake. VITAL SIGNS: Afebrile, pulse 75, breathing 16, blood pressure was 99/66. HEAD/NECK: Normocephalic. Atraumatic. EYES: EOMI. No deformity. EARS: Clear. No ulcers. NOSE: Intact. No lesions. MOUTH: Clear. No discharge. THROAT: Clear. No exudate. LUNGS: Clear. No crackles. CARDIAC: S1, S2. No rub. ABDOMEN: Benign. BS+. GENITALIA/RECTUM: Perez absent. BACK/EXTREMITIES: Edema 0+ Ulcer- NEUROLOGICAL: Alert and motor intact. SKIN: Rash- Bruise- LYMPHATICS: Edema- Ulcer- LABORATORY DATA: Reviewed. ASSESSMENT AND RECOMMENDATIONS: 1. Stage 6 chronic kidney disease, plan dialysis. 2. Hypertension, stable. 3. Anemia, stable. 4. Medications based on glomerular filtration rate are appropriate.
--- NOTE | 2017-10-25 14:08 | PDOC.PN ---
- Subjective Encounter Start Date: 10/25/17 Encounter Start Time: 14:04 Mr. Lyons was seen today in follow-up. He does not have any complaints. He denies chest pain or shortness of breath. He says he feels fine. - Objective Resuscitation Status: Resuscitation Status FULL:Full Resuscitation MAR Reviewed: Yes Vital Signs & Weight: Vital Signs (12 hours) Temp Pulse Resp BP Pulse Ox 10/25/17 07:35 97.8 F 93 18 10/25/17 05:05 93 18 99/66 95 Weight Weight 169 lb 4.8 oz I&O: 10/24/17 10/25/17 10/26/17 06:59 06:59 06:59 Intake Total 100 1999 Balance 100 1999 Result Diagrams: 10/24/17 04:30 10/24/17 04:30 Phys Exam - Physical Examination HEENT: PERRLA Respiratory: no wheezing, no rales, no rhonchi, clear to auscultation bilateral Cardiovascular: RRR, no significant murmur, no rub Gastrointestinal: soft, non-tender, positive bowel sounds Musculoskeletal: no edema Dx/Plan (1) Atrial fibrillation with RVR Code(s): I48.91 - UNSPECIFIED ATRIAL FIBRILLATION Status: Acute (2) Volume overload Code(s): E87.70 - FLUID OVERLOAD, UNSPECIFIED Status: Acute Comment: Resolved after urgent HD (3) ESRD (end stage renal disease) on dialysis Code(s): N18.6 - END STAGE RENAL DISEASE; Z99.2 - DEPENDENCE ON RENAL DIALYSIS Status: Chronic Comment: HD per renal service (4) HTN (hypertension) Code(s): I10 - ESSENTIAL (PRIMARY) HYPERTENSION Status: Chronic Qualifiers: Comment: Stable currently, resume home BP regimen - Plan * Chronic systolic heart failure- he is compensated with regards to volume * AFIB- the plan will be to attempt to convert him to sinus rhythm. He has been placed on Amiodarone, and he is also on Eliquis for stroke prevention * ESRD- stable- he is tolerating dialysis . * HTN- blood pressure is stable
[2017-10-25] MEDS: Famotidine 20 MG TAB PO SCH (14:31)
[2017-10-25] MEDS: Apixaban 5 MG TAB PO SCH ×2 (14:31→20:41)
[2017-10-25] MEDS: Allopurinol 100 MG TAB PO SCH (14:32)
[2017-10-25] MEDS: Lisinopril 10 MG TAB PO SCH (20:39)
[2017-10-25] MEDS ORDERED: Lisinopril 5 MG TAB PO SCH (21:00)
[2017-10-26] MEDS: Amiodarone 200 MG TAB PO SCH ×4 (00:49→21:34)
[2017-10-26] MEDS: Terazosin HCl 1 MG CAP PO SCH ×2 (00:53→21:39)
[2017-10-26 04:23] LABS: Hemoglobin 11.1 g/dL (14.0-18.0); Platelet Count 133 thou/uL (130-400)
[2017-10-26] MEDS: Cipro 250 MG TAB PO SCH ×2 (05:25→21:39)
[2017-10-26] MEDS: Levothyroxine Sodium 25 MCG TAB PO SCH (05:25)
[2017-10-26] MEDS: Carvedilol 6.25 MG TAB PO SCH ×2 (09:35→16:57)
[2017-10-26] MEDS: Famotidine 20 MG TAB PO SCH (09:37)
[2017-10-26] MEDS: Apixaban 5 MG TAB PO SCH ×2 (09:37→21:39)
[2017-10-26] MEDS: Lisinopril 5 MG TAB PO SCH ×2 (09:37→21:33)
[2017-10-26] MEDS: Allopurinol 100 MG TAB PO SCH (09:37)
--- NOTE | 2017-10-26 10:35 | PDOC.PN ---
- Subjective Encounter Start Date: 10/26/17 Encounter Start Time: 10:31 Mr. Lyons was seen today in follow-up. He does not have any complaints. He denies feeling short of breath, and denies any chest pain. - Objective Resuscitation Status: Resuscitation Status FULL:Full Resuscitation MAR Reviewed: Yes Vital Signs & Weight: Vital Signs (12 hours) Temp Pulse Resp BP BP BP Pulse Ox 10/26/17 09:37 98 116/72 10/26/17 09:35 116/72 10/26/17 07:20 97.7 F 98 16 116/72 95 10/26/17 04:00 97.8 F 93 12 97/64 92 L 10/26/17 00:49 98 110/63 10/26/17 00:00 97.7 F 98 18 110/81 94 L Weight Weight 155 lb I&O: 10/25/17 10/26/17 10/27/17 06:59 06:59 06:59 Intake Total 1999 150 Output Total 200 Balance 1999 -50 Result Diagrams: 10/26/17 03:26 10/26/17 03:26 Phys Exam - Physical Examination HEENT: PERRLA Respiratory: no wheezing, no rales, no rhonchi, clear to auscultation bilateral Cardiovascular: no significant murmur, irregular Gastrointestinal: soft, non-tender, positive bowel sounds Musculoskeletal: no edema Dx/Plan (1) Atrial fibrillation with RVR Code(s): I48.91 - UNSPECIFIED ATRIAL FIBRILLATION Status: Acute (2) Volume overload Code(s): E87.70 - FLUID OVERLOAD, UNSPECIFIED Status: Acute Comment: Resolved after urgent HD (3) ESRD (end stage renal disease) on dialysis Code(s): N18.6 - END STAGE RENAL DISEASE; Z99.2 - DEPENDENCE ON RENAL DIALYSIS Status: Chronic Comment: HD per renal service (4) HTN (hypertension) Code(s): I10 - ESSENTIAL (PRIMARY) HYPERTENSION Status: Chronic Qualifiers: Comment: Stable currently, resume home BP regimen - Plan * AFIB - his heart rate is better on Amiodarone, but he continues in AFIB * Continue Eliquis for stroke prevention * Chronic systolic heart failure- a life vest has been ordered * HTN- blood pressure is controlled * ESRD- stable continue HD
--- NOTE | 2017-10-26 10:45 | PRG ---
DATE OF SERVICE: 10/26/2017 SUBJECTIVE: A 51-year-old gentleman being seen for end-stage renal disease. The patient denies any nausea, vomiting or chest pain. PHYSICAL EXAMINATION: GENERAL: Patient is awake, alert. VITAL SIGNS: Afebrile, pulse 90, breathing 16, blood pressure 162/72. OBJECTIVE: See above. Awake, alert, in no acute distress. GENERAL APPEARANCE AND MENTAL STATUS: Fair. HEAD/NECK: Normocephalic. Atraumatic. EYES: EOMI. No deformity. EARS: Clear. No ulcers. NOSE: Intact. No lesions. MOUTH: Clear. No discharge. THROAT: Clear. No exudate. LUNGS: Clear. No crackles. CARDIAC: S1, S2. No rub. ABDOMEN: Benign. BS+. GENITALIA/RECTUM: Perez absent. BACK/EXTREMITIES: Edema 0+ Ulcer- NEUROLOGICAL: Alert and motor intact. SKIN: Rash- Bruise- LYMPHATICS: Edema- Ulcer- LABORATORY: None. ASSESSMENT AND RECOMMENDATIONS: 1. Stage 6 chronic kidney disease, continue hemodialysis. 2. Hypertension, stable. 3. Anemia, stable. 4. Medication based on glomerular filtration rate are appropriate. 5. Secondary hyperparathyroidism. Continue low phosphorus diet.
[2017-10-26] MEDS: Stress 600 With Zinc 1 TAB PO SCH (11:04)
[2017-10-27] MEDS: Cipro 250 MG TAB PO SCH (05:35)
[2017-10-27] MEDS: Levothyroxine Sodium 25 MCG TAB PO SCH (05:35)
[2017-10-27 07:13] VITALS: TEMP 97.5
--- NOTE | 2017-10-27 09:29 | PRG ---
DATE OF SERVICE: 10/27/2017 SUBJECTIVE: A 51-year-old male being seen for end-stage renal disease. The patient denies any nause a, vomiting or chest pain. PHYSICAL EXAMINATION: GENERAL: Patient is awake, alert. VITAL SIGNS: Afebrile, pulse 60, breathing at 16, blood pressure 106/55. OBJECTIVE: See above. Awake, alert, in no acute distress. GENERAL APPEARANCE AND MENTAL STATUS: Fair. HEAD/NECK: Normocephalic. Atraumatic. EYES: EOMI. No deformity. EARS: Clear. No ulcers. NOSE: Intact. No lesions. MOUTH: Clear. No discharge. THROAT: Clear. No exudate. LUNGS: Clear. No crackles. CARDIAC: S1, S2. No rub. ABDOMEN: Benign. BS+. GENITALIA/RECTUM: Perez absent. BACK/EXTREMITIES: Edema 0+ Ulcer- NEUROLOGICAL: Alert and motor intact. SKIN: Rash- Bruise- LYMPHATICS: Edema- Ulcer- LABORATORY: Hemoglobin 9.1. ASSESSMENT AND RECOMMENDATIONS: 1. Stage 6 chronic kidney disease, continue hemodialysis. 2. Hypertension, stable. 3. Anemia, stable. 4. Medications based on glomerular filtration rate are appropriate.
[2017-10-27] MEDS: Amiodarone 200 MG TAB PO SCH ×2 (12:39→13:58)
[2017-10-27] MEDS: Lisinopril 5 MG TAB PO SCH (13:58)
[2017-10-27] MEDS: Carvedilol 6.25 MG TAB PO SCH (13:58)
[2017-10-27 13:59] VITALS: BP 135/90
[2017-10-27] MEDS: Allopurinol 100 MG TAB PO SCH (13:59)
[2017-10-27] MEDS: Stress 600 With Zinc 1 TAB PO SCH (13:59)
[2017-10-27] MEDS: Apixaban 5 MG TAB PO SCH (13:59)
[2017-10-27] MEDS: Famotidine 20 MG TAB PO SCH (13:59)
--- NOTE | 2017-10-27 15:03 | PDOC.PN ---
- Subjective Encounter Start Date: 10/27/17 Encounter Start Time: 15:01 Mr. Lyons was seen today in follow-up. He does not have any complaints. He denies chest pain or shortness of breath. - Objective Resuscitation Status: Resuscitation Status FULL:Full Resuscitation MAR Reviewed: Yes Vital Signs & Weight: Vital Signs (12 hours) Temp Pulse Resp BP BP BP Pulse Ox 10/27/17 14:03 88 20 135/90 95 10/27/17 13:58 67 135/90 10/27/17 08:58 67 18 100/65 94 L 10/27/17 08:00 97.5 F L 67 18 10/27/17 07:12 97.5 F L 102 H 18 92/66 94 L 10/27/17 03:59 97.3 F L 83 21 H 95/58 L 98 Weight Weight 158 lb 4.8 oz I&O: 10/26/17 10/27/17 10/28/17 06:59 06:59 06:59 Intake Total 150 960 35 Output Total 200 775 0 Balance -50 185 35 Result Diagrams: 10/26/17 03:26 10/26/17 03:26 Phys Exam - Physical Examination HEENT: PERRLA Respiratory: no wheezing, no rales, no rhonchi, clear to auscultation bilateral Cardiovascular: RRR, no significant murmur, no rub Gastrointestinal: soft, non-tender, positive bowel sounds Musculoskeletal: no edema Dx/Plan (1) Atrial fibrillation with RVR Code(s): I48.91 - UNSPECIFIED ATRIAL FIBRILLATION Status: Acute (2) Volume overload Code(s): E87.70 - FLUID OVERLOAD, UNSPECIFIED Status: Acute Comment: Resolved after urgent HD (3) ESRD (end stage renal disease) on dialysis Code(s): N18.6 - END STAGE RENAL DISEASE; Z99.2 - DEPENDENCE ON RENAL DIALYSIS Status: Chronic Comment: HD per renal service (4) HTN (hypertension) Code(s): I10 - ESSENTIAL (PRIMARY) HYPERTENSION Status: Chronic Qualifiers: Comment: Stable currently, resume home BP regimen - Plan * AFIB- he has undergone cardioversion and is now in sinus * He has been placed on Amiodarone, and Eliquis * He is stable for discharge home.
--- NOTE | 2017-10-27 15:57 | ECHO ---
Patient is a 51-year-old gentleman with typical atrial flutter. The patient was taken to the PACU, the patient was sedated by Anesthesiology. A transesophageal probe was placed in the distal esophagu s and stomach. Echocardiograms were obtained and the transesophageal probe removed FINDINGS 1. Severe decrease in left ventricular systolic function. 2. Left atrial enlargement. 3. Left ventricle is moderately dilated. 4. Moderate to severe mitral regurgitation. 5. Moderate tricuspid regurgitation. 6. No thrombus is noted in the left atrium or left atrial appendage. 7. Atherosclerotic debris in the descending aorta. IMPRESSION: No formed thrombus in left atrium or left atrial appendage.
[2017-10-27] MEDS ORDERED: PROPOFOL 200 MG/20 ML VIAL ONE (17:44)
[2017-10-27] MEDS ORDERED: Lidocaine 1% PF 5 ML VIAL ONE (17:44)
--- NOTE | 2017-10-28 01:12 | DIS ---
PRIMARY CARE PHYSICIAN: Kelby Ndiaye M.D. DATE OF ADMISSION: 10/23/2017 DATE OF DISCHARGE: 10/27/2017 DISCHARGE DISPOSITION: Home. DISCHARGE DIAGNOSES: 1. Atrial fibrillation with rapid ventricular response. 2. Chronic systolic heart failure with an ejection fraction of 15%-20%. 3. End-stage renal disease on hemodialysis. 4. Hypertension. 5. Hypothyroidism. 6. Gout. 7. History of benign prostatic hypertrophy. DISCHARGE MEDICATIONS: Include amiodarone 400 mg t.i.d. for 2 weeks and to taper then 200 mg twice a day, levothyroxine 25 mcg daily, lisinopril 2.5 mg twice a day, Renvela 1600 mg t.i.d., Hytrin 2 mg at bedtime, Eliquis 5 mg twice daily, allopurinol 100 mg daily, and ciprofloxacin 250 mg twice a day for 3 days. PROCEDURES DONE DURING ADMISSION: The patient had an echocardiogram, in which the ejection fraction was estimated at 15%-20%. There was some severe mitral regurgitation, severe tricuspid regurgitation , and mild aortic regurgitation. The patient also had a HARSHA and elective cardioversion. CODE STATUS: Full code. ALLERGIES: No known drug allergies. HOSPITAL COURSE: Mr. Ventura is a pleasant 51-year-old gentleman that presented to the emergency r oom complaining of dyspnea on exertion. He was found to be in atrial fibrillation with rapid ventric ular response and was admitted. After undergoing dialysis, his heart rate improved; however, he stil l remained in atrial fibrillation. He has been complaining of some dyspnea on exertion for the past few months which likely could be attributed to the atrial fibrillation. He was evaluated by Cardiolo gy and underwent an echocardiogram. His ejection fraction was found to be much lower than it had pre viously been evaluated; however, this was several years ago, approximately 6 years prior. At this ti me, his ejection fraction was estimated at 15%-20% and it is likely that he has been in atrial fibril lation for quite some time. The decision was made to place him on anticoagulation as well as amiodar one in hopes of converting him and he also underwent elective cardioversion. He was also evaluated f or a LifeVest and is being fitted for a LifeVest prior to discharge. He was counseled extensively on the need for compliance with followup as the patient had not seen Dr. Kenny in over 6 years. The patient thought it had only been a year and he voiced understanding. The patient therefore will be discharged home with close outpatient followup.
== END 2017-10-27 17:03 | disposition home or self-care (01) | DRG 308 ==
LOC: ERS 11:10 → OBSVTOIN 13:30 → 2SW 13:30 → 2NO 10-25 11:45
PROVIDERS: ADMIT Internal Medicine; ATTEND Internal Medicine
PROC: B246ZZ4 Ultrasonography of Right and Left Heart, Transesophageal (ICD-10-PCS; principal; 2017-10-27)
DX: I48.91 Unspecified atrial fibrillation (principal); N18.6 End stage renal disease; I13.2 Hypertensive heart and chronic kidney disease with heart failure and with stage 5 chronic kidney disease, or end stage renal disease; N39.0 Urinary tract infection, site not specified; N25.81 Secondary hyperparathyroidism of renal origin; I50.22 Chronic systolic (congestive) heart failure; I08.1 Rheumatic disorders of both mitral and tricuspid valves; N40.0 Benign prostatic hyperplasia without lower urinary tract symptoms; Z99.2 Dependence on renal dialysis; E03.9 Hypothyroidism, unspecified; M10.9 Gout, unspecified; D64.9 Anemia, unspecified
CPT/HCPCS: 36415; 80061; 80069; 82565; 85014; 85018; 85025; 85049; 90935; 92960; 93005; 93010; 93306; 93312; 93798; 96374; A4216; G0257; J2001; J2704; Q0162

== ENCOUNTER 2017-11-14 00:12 | Inpatient (IN) | payer OTHER ==
[2017-11-14 00:53] LABS: Actual Bicarbonate (HCO3a) 28.6 mEq/L (22-28); Base Excess (BEa) 4.9 mEq/L (-2.0 to +3.0); CO2 Tension 38.5 mmHg (35.0-45.0); Hematocrit-ABG 39.7 % (42.0-52.0); Hemoglobin (Hb) 11.6 g/dL (14.0-18.0); O2 Tension (PaO2) 79.8 mmHg (80.0-100.0); pH, Arterial 7.49 (7.35-7.45)
[2017-11-14 00:54] LABS: Analyzer IN Cardio ER; Calcium, Ionized 1.1 mmol/L (1.12-1.30); Puncture Site LRA
[2017-11-14 00:56] LABS: ALV-art Gradient 299.875 (0-20)
[2017-11-14] MEDS ORDERED: Acetaminophen 325 MG TAB PO PRN (01:14)
[2017-11-14] MEDS ORDERED: Ondansetron HCl/PF 4 MG/2 ML Vial IVP PRN ×2 (01:14→04:33)
[2017-11-14] MEDS ORDERED: Piperacillin/Tazobactam 3.375 GM in Sodium Chloride 0.9% 100 ML IVPB SCH ×2 (01:45→04:45)
[2017-11-14 01:58] LABS: Troponin I 0.263 ng/mL (< 0.028)
[2017-11-14] MEDS ORDERED: Acetaminophen 500 MG TAB ONE (02:03)
[2017-11-14 03:26] VITALS: BMI 24.0
[2017-11-14] MEDS: Levothyroxine Sodium 25 MCG TAB PO SCH (05:12)
[2017-11-14] MEDS ORDERED: Levothyroxine Sodium 25 MCG TAB PO SCH (06:00)
--- NOTE | 2017-11-14 06:52 | HP ---
PRIMARY CARE PHYSICIAN: Kelby Ndiaye M.D. TIME OF EVALUATION: Around 10 a.m. CHIEF COMPLAINT: Shortness of breath. CODE STATUS: The patient is FULL CODE. HISTORY OF PRESENT ILLNESS: This is a 52 years old male patient with past medical history of arrhythmia, atrial fibrillation, hypothyroidism, hypertension , end-stage renal disease on hemodialysis, follow up with Dr. Andrew, gets dialysis Monday, Monday, and Monday. He came to the hospital after having shortness of breath that was severe, after getting dialysis, the saturation was 58, after treatment in the ER with oxygen came up to the 90s as now the patient has been followed for CHF, due to severe depressed EF, he is wearing a LifeVest. He also reported having some fever, nausea, and vomiting. No clear triggers, no alleviating factors, the symptoms started suddenly. REVIEW OF SYSTEMS: Constitutional: Fever, chills, generalized weakness. Respiratory: Cough, scant sputum production, shortness of breath. Cardiovascular: No chest pain, palpitations, shortness of breath. Gastrointestinal: No nausea, vomiting, no diarrhea, no abdominal pain. Central nervous system: No dizziness, headache, feeling lightheaded. Genitourinary: No burning with urination. Extremities: Bilateral leg swelling. All other systems reviewed were negative except for the findings mentioned above. PAST MEDICAL HISTORY: End-stage renal disease on hemodialysis, atrial fibrillation, hypothyroidism. PAST SURGICAL HISTORY: Dialysis graft, right forearm, cardioversion. PSYCHIATRIC HISTORY: No previous psychiatric history. SOCIAL HISTORY: No alcohol, no drugs. No smoking history. KNOWN ALLERGIES: No known drug allergies. REPORTED MEDICATIONS: Terazosin, carvedilol, levothyroxine, lisinopril, amiodarone, Eliquis, allopurinol. PHYSICAL EXAMINATION: VITAL SIGNS: On presentation, blood pressure 160/92 with heart rate 90, respiratory rate was 18, oxygen saturation 94% on BiPAP. GENERAL APPEARANCE: The patient is alert, oriented, in mild distress, still wearing BiPAP. HEENT: Eyes: Normal conjunctiva. Moist oral mucosa. Anicteric. NECK: No JVD. RESPIRATORY: Bilateral air entry, wheezing, rales are scattered, symmetrical expansion, still on BiPAP. CARDIOVASCULAR: Tachycardic, irregular with no murmurs, no gallop. Bilateral leg edema. ABDOMEN: Soft, normal bowel sounds. MUSCULOSKELETAL: Baseline range of motion and strength. No tenderness. SKIN: Warm and intact. No pallor, no rash, no redness. NEUROLOGIC: Baseline sensory. No evidence of any new focal weakness. Baseline speech. Cranial nerves seem to be intact. PSYCHIATRIC: Good mood, no anxiety, oriented, optimal judgement. LABORATORY DATA: Reviewed. The patient had an ABG done with pH of 7.49, pCO2 of 38. Troponin 0.263 has been mildly elevated in previous admissions 0.056. Hematology: White count 8.4, hemoglobin 11.4, MCV 86, platelet count 171. Coagulation was INR 1.7, PTT 35, PT 10. Chemistry was reviewed. Sodium 141, potassium 3.4, chloride 98, carbon dioxide 36, anion gap 20, BUN 29. LFTs were normal. Total bilirubin 1.4. X-ray was reviewed. The patient has interval development of interstitial alveolar opacities suggesting pulmonary edema, infectious pneumonitis/aspiration cannot be excluded. ASSESSMENT AND PLAN: The patient will be placed in the ICU for the following medical problems. 1. Hypoxic respiratory failure needing BiPAP support for improvement. Continue noninvasive positive pressure ventilatory support for now. We will step down soon as we are able to. 2. Possible pneumonia. We will start the patient on broad spectrum antibiotics , send blood cultures, final results and adjust treatment as needed. 3. Hypothyroidism, continue hormone replacement. 4. History of atrial fibrillation, rate is controlled, reconcile home medications. Continue Eliquis. 5. History of end-stage renal disease. The patient followed with Dr. Andrew, continue with hemodialysis. Consultation with nephro in a.m. 6. Deep venous thrombosis prophylaxis. The patient is on Eliquis. 7. Chronic normocytic anemia, this is likely secondary to chronic kidney disease, will defer to nephro for treatment for anemia at this point. 8. The patient has asthma and hypokalemia. Potassium 3.4, will not treat aggressively since the patient is on hemodialysis. 9. Positive troponin of 0.263, likely nstemi type 2, also associated with the event of end-stage renal disease, will trend troponins, we will treat accordingly. MTDD
[2017-11-14] MEDS ORDERED: Carvedilol 25 MG TAB PO SCH (08:00)
--- NOTE | 2017-11-14 08:02 | PDOC.PN ---
- Subjective Encounter Start Date: 11/14/17 Encounter Start Time: 07:59 Came to see patient in code blue. He was reported to have been sitting up at the bedside commode, and then became unresponsive. His heart rate was in the 20 "s. He was given atropine, and has since recovered, and is awake and alert. He denies feeling short of breath. He denies chest pain, or nausea. - Objective Resuscitation Status: Resuscitation Status FULL:Full Resuscitation MAR Reviewed: Yes Vital Signs & Weight: Vital Signs (12 hours) Temp Pulse Resp Pulse Ox 11/14/17 07:11 97.9 F 71 30 H 99 11/14/17 07:00 97.9 F 11/14/17 04:00 95 11/14/17 03:30 98.1 F 79 23 H 100 11/14/17 03:15 79 32 H Most Recent Monitor Data Heart Rate from ECG 70 NIBP 132/80 NIBP BP-Mean 93 Respiration from ECG 32 SpO2 97 I&O: 11/13/17 11/14/17 11/15/17 06:59 06:59 06:59 Intake Total 356 0 Output Total 0 0 Balance 356 0 Phys Exam - Physical Examination HEENT: PERRLA + rales bilaterally, no wheezing or rhonchi. Cardiovascular: gallop Tachycardic, + S3, and 2/6 systolic murmur Gastrointestinal: soft, non-tender, positive bowel sounds Musculoskeletal: no edema Dx/Plan (1) Elevated troponin Code(s): R74.8 - ABNORMAL LEVELS OF OTHER SERUM ENZYMES Status: Acute (2) Healthcare-associated pneumonia Code(s): J18.9 - PNEUMONIA, UNSPECIFIED ORGANISM Status: Acute (3) Acute respiratory failure with hypoxia Code(s): J96.01 - ACUTE RESPIRATORY FAILURE WITH HYPOXIA Status: Acute Comment: suspected secondary to volume overload, resolved (4) ESRD (end stage renal disease) on dialysis Code(s): N18.6 - END STAGE RENAL DISEASE; Z99.2 - DEPENDENCE ON RENAL DIALYSIS Status: Chronic Comment: HD per renal service (5) HTN (hypertension) Code(s): I10 - ESSENTIAL (PRIMARY) HYPERTENSION Status: Chronic Qualifiers: Comment: Stable currently, resume home BP regimen - Plan * Code Blue- heart rate was initially in the 20's and responded to atropine- . ? vagal response. Now he is in sinus tachycardia, with an incomplete LBBB, and some ST segment depression laterally- will continue to trend cardiac enzymes , and notify Cardiology- * He continue to have rales on exam, despite saying he does not feel short of breath- ? volume overload, vs. Pneumonia * Healthcare Associated Pneumonia- Continue Zozsyn and Vancomycin . * ESRD- as per Nephrology * Acute on chronic systolic heart failure- vs, Compensated heart failure with pneumonia- will monitor
[2017-11-14] MEDS ORDERED: Vancomycin HCl 1 GM in Premix Bag 1 BAG IVPB SCH ×2 (08:30→09:00)
[2017-11-14] MEDS ORDERED: HOLD VANCOMYCIN FOR LEVEL >20 FS SCH (08:30)
[2017-11-14] MEDS ORDERED: Vancomycin HCl 750 MG in Sodium Chloride 0.9% 250 ML 250 ML IVPB SCH (08:30)
[2017-11-14] MEDS ORDERED: Vancomycin HCl 500 MG in Sodium Chloride 0.9% 100 ML IVPB SCH (08:30)
[2017-11-14] MEDS ORDERED: Vancomycin HCl 250 MG in Sodium Chloride 0.9% 100 ML IVPB SCH (08:30)
[2017-11-14 08:31] LABS: #Eosinphils 0.2 thou/uL (0.0-0.7); #Lymphocytes 1.2 thou/uL (1.20-3.40); #Monocytes 0.6 thou/uL (0.11-0.59); #Neutrophils 7.5 thou/uL (1.40-6.50); %Basophils 0.5 % (0.0-1.0); %Eosinophils 1.9 % (0.0-10.0); %Lymphocytes 12.8 % (21.0-51.0); %Monocytes 5.8 % (0.0-10.0); %Neutrophils 79.1 % (42.0-75.0); Hemoglobin 11.5 g/dL (14.0-18.0); Mean Corpuscular HGB CONC 30.5 g/dL (32.0-36.0); Mean Corpuscular Hemoglobin 28.1 pg (27.0-31.0); Mean Platelet Volume 9.2 fL (7.4-10.4); Platelet Count 146 thou/uL (130-400); RBC Distribution Width 18.5 % (11.5-14.5); Red Blood Cell (RBC) Count 4.11 mill/uL (4.70-6.10); White Blood Cell (WBC) Count 9.5 thou/uL (4.8-10.8)
[2017-11-14 08:52] LABS: ALT (SGPT) 12 U/L (8-55); AST (SGOT) 11 U/L (5-34); Albumin 3.2 g/dL (3.5-5.0); Alkaline Phosphatase 55 U/L (40-150); Anion Gap 17 mmol/L (10-20); BUN (Urea Nitrogen) 36 mg/dL (8.4-25.7); Bilirubin, Total 1.4 mg/dL (0.2-1.2); Calc. Creatinine Clearance 10 mL/min (70-130); Calcium 8.9 mg/dL (7.8-10.44); Carbon Dioxide 29 mmol/L (22-29); Chloride 97 mmol/L (98-107); Estimated GFR-MDRD 8; Globulin 2.8 g/dL (2.4-3.5); Glucose 145 mg/dL (70-105); Potassium 4.2 mmol/L (3.5-5.1); Sodium 139 mmol/L (136-145)
[2017-11-14 09:00] LABS: Troponin I 0.869 ng/mL (< 0.028)
[2017-11-14] MEDS ORDERED: Allopurinol 100 MG TAB PO SCH (09:00)
[2017-11-14] MEDS ORDERED: Apixaban 5 MG TAB PO SCH (09:00)
[2017-11-14] MEDS ORDERED: Lisinopril 2.5 MG TAB PO SCH (09:00)
[2017-11-14] MEDS ORDERED: Folic Acid/Vit B Comp W-C PO SCH (09:00)
[2017-11-14] MEDS ORDERED: Sevelamer Carbonate 800 MG TAB PO SCH (09:00)
[2017-11-14] MEDS ORDERED: Amiodarone 200 MG TAB PO SCH (09:00)
[2017-11-14] MEDS: Allopurinol 100 MG TAB PO SCH (09:05)
[2017-11-14] MEDS: Folic Acid/Vit B Comp W-C PO SCH (09:05)
[2017-11-14] MEDS: Amiodarone 200 MG TAB PO SCH ×3 (09:06→21:22)
[2017-11-14] MEDS: Apixaban 5 MG TAB PO SCH ×2 (09:06→21:21)
[2017-11-14] MEDS: Sevelamer Carbonate 800 MG TAB PO SCH ×3 (09:06→21:21)
[2017-11-14] MEDS: Carvedilol 25 MG TAB PO SCH ×2 (09:07→16:33)
[2017-11-14] MEDS: Lisinopril 2.5 MG TAB PO SCH ×2 (09:08→23:13)
--- NOTE | 2017-11-14 10:04 | RAD ---
PORTABLE UPRIGHT FRONTAL CHEST RADIOGRAPH: Date: 11/14/17 COMPARISON: 11/13/17. HISTORY: Shortness of breath with bradycardia. FINDINGS: No pneumothorax evident. There is interstitial and alveolar opacity involving bilateral mid lung zones and lung bases, right g reater than left, slightly improved since the 11/13/17 exam. No large volume pleural effusion. IMPRESSION: Bilateral interstitial and alveolar opacity, nonspecific and slightly improved. Findings may be on t he basis of edema. Infection or aspiration is a possibility. Recommend follow-up to full resolution. POS: [facility]
--- NOTE | 2017-11-14 11:18 | CON ---
DATE OF CONSULTATION: 11/14/2017 CONSULTING PHYSICIAN: Porfirio Solorzano M.D. REASON FOR CONSULTATION: End-stage renal disease evaluation and care. REASON FOR ADMISSION: Shortness of breath. HISTORY OF PRESENT ILLNESS: This is a 52-year-old male with history of atrial fibrillation, hypothyr oidism, hypertension, end-stage renal disease on hemodialysis Monday, Monday, Monday, and came to the hospital with shortness of breath. The patient had dialysis today, went home and around 7:30 p.m ., started having shortness of breath. The patient had a recent admission for congestive heart failu re and was found to have very poor ejection fraction around 15% to 20% and he is on LifeVest also. T he patient denies any increased fluid intake. No fever or chills. No nausea, vomiting, no chest aneesh n, no abdominal pain. PAST MEDICAL HISTORY: Positive for end-stage renal disease, atrial fibrillation, hypothyroidism, CHF with EF of 15% to 20%. PAST SURGICAL HISTORY: Dialysis access, placement cardioversion. HOME MEDICATIONS: Terazosin, carvedilol, levothyroxine, lisinopril, amiodarone liquids, and allopuri nol. ALLERGIES: No known drug allergies. SOCIAL HISTORY: No smoking, alcohol, or illicit drug abuse. FAMILY HISTORY: No surgeries. REVIEW OF SYSTEMS: The following complete review of systems was negative, unless otherwise mentioned in the HPI or below: Constitutional: Weight loss or gain, ability to conduct usual activities. Skin: Rash, itching. Ey es: Double vision, pain. ENT/Mouth: Nose bleeding, neck stiffness, pain, tenderness. Cardiovascul ar: Palpitations, dyspnea on exertion, orthopnea. Respiratory: Shortness of breath, wheezing, coug h, hemoptysis, fever or night sweats. Gastrointestinal: Poor appetite, abdominal pain, heartburn, n ausea, vomiting, constipation, or diarrhea. Genitourinary: Urgency, frequency, dysuria, nocturia. Musculoskeletal: Pain, swelling. Neurologic/Psychiatric: Anxiety, depression. Allergy/Immunologic : Skin rash, bleeding tendency. PHYSICAL EXAMINATION: GENERAL: This is a well-built male in no apparent distress. VITAL SIGNS: Temperature 97.9, pulse 71, respiratory 20, and blood pressure 90/60. HEENT: Atraumatic, normocephalic. Oral mucosa is moist. NECK: Supple. CARDIOVASCULAR: S1 and S2 heard. Rate and rhythm regular. RESPIRATORY: Clear. ABDOMEN: Soft. MUSCULOSKELETAL: 1+ edema. DERMATOLOGIC: No skin rash. NEUROLOGIC: Alert, awake. PSYCHIATRIC: Mood and affect. LABORATORY DATA: Hemoglobin is 11.5, potassium 4.2, BUN is 36, creatinine is 8.6. Chest x-ray with fluid overload. ASSESSMENT AND PLAN: 1. End-stage renal disease. Plan is to have dialysis today. The patient gets dialysis Monday, , and Monday. We will have an extra session of dialysis for ultrafiltration. The patient is hi gh risk for dialysis. He is hypotensive and may not be able to have ultrafiltration. Plan is to use albumin and sequential treatment only, hold blood pressure medicines to facilitate dialysis and flui d removal with dialysis. 2. Anemia, mild. 3. Edema with fluid overload. Plan is to remove fluid. 4. Cardiorenal syndrome with severe depression and ejection fraction. The patient remains high risk for dialysis. 5. Elevated troponin. Follow with Cardiology. 6. Hypoalbuminemia moderate and we will follow. 7. Moderate protein energy malnutrition. 8. Continue protein supplements. We will have dialysis today with ultrafiltration if tolerated. Mo nitor blood pressure closely. Continue close monitoring in CCU. Patient understands the risk for di alysis. We will follow. Thank you for the consult.
[2017-11-14 12:56] LABS: Critical Call Chem Troponin I RESULT DECREASING; Troponin I 0.762 ng/mL (< 0.028)
[2017-11-14] MEDS ORDERED: Albumin 25% 25 GM/100 ML BOT IVPB PRN (13:36)
[2017-11-14] MEDS: Piperacillin/Tazobactam 2.25 GM in Sodium Chloride 0.9% 100 ML IVPB SCH (14:39)
[2017-11-14] MEDS ORDERED: Atropine Sulfate 1 mg/10 ml Syringe ONE (14:44)
[2017-11-14] MEDS ORDERED: EPINEPHrine 1 MG/10 ML Abboject SYRINGE ONE (14:44)
[2017-11-14] MEDS ORDERED: Piperacillin/Tazobactam 2.25 GM in Sodium Chloride 0.9% 100 ML IVPB SCH (15:00)
--- NOTE | 2017-11-14 19:54 | CON ---
DATE OF CONSULTATION: 11/14/2017 Mr. Ventura is a 52-year-old dialysis patient. He was admitted with volume overload with complaints of shortness of breath. He got up to a bedside commode. This morning he had hypotension and syncope. He received 1 amp of epinephrine and atropine recovered. He was not intubated. I was consulted because of his presence in the Critical Care Unit. PAST MEDICAL HISTORY: Remarkable for dialysis, atrial fibrillation, hypothyroidism, vascular access procedures and cardioversion for atrial fibrillation in the past. SOCIAL HISTORY: He is nonsmoker and nondrinker. He does not use drugs. ALLERGIES: Has no drug allergies. MEDICATIONS: Prior to admission he was on terazosin, Coreg, Synthroid, lisinopril, amiodarone, Eliquis, and allopurinol. FAMILY HISTORY: Negative for lung disease in early age. REVIEW OF SYSTEMS: Ten points otherwise negative. PHYSICAL EXAMINATION: VITAL SIGNS: When I last saw him, his blood pressure was in the 90s, heart rate was in the 50s, respiratory rate is 19-24, oximetry is 100%. HEENT: Pupils are equal. Sclerae is anicteric. Extraocular movements are full. NECK: Supple, no lymphadenopathy. LUNGS: Clear. HEART: Regular rhythm. S1 and S2 are normal. ABDOMEN: Soft and nontender. EXTREMITIES: No clubbing, cyanosis, or edema. LABORATORY DATA: White count 9.5, hemoglobin 11.5, and platelets 146,000. Sodium 139, potassium 4.2, chloride 97, bicarbonate 29, BUN 36, creatinine 8.66. IMPRESSION: 1. Volume overload. 2. Status post hypotensive event this morning with change in posture. PLAN: Cardiology input. Continue with dialysis if his blood pressure tolerates. Continue in Critical Care Unit. He is not a candidate for the Intermediate Care Unit at this point in time. This is a 70 minute visit with greater than 50% of time spent on unit with coordination of care. NABOR
[2017-11-14] MEDS ORDERED: Terazosin HCl 1 MG CAP PO SCH (21:00)
--- NOTE | 2017-11-14 21:28 | CON ---
DATE OF CONSULTATION: 11/14/2017 HISTORY OF PRESENT ILLNESS: Faby Lyons is a 52-year-old black male who I have followed intermittently since 10/1996. His previous history is noted in a dictation from 3 weeks ago. During that hospitalization, he had recurrence of atrial fibrillation and underwent transesophageal echo followed by electrical cardioversion to sinus rhythm. He was sent home on a LifeVest due to ejection fraction of 15%-20%. He did have improvement in how he felt once he was cardioverted him back to sinus rhythm. He now is admitted complaining of shortness of breath. O2 saturation was 58%. He was admitted and placed on oxygen. After he got up off the commode earlier today, he apparently had a very bradycardic episode with heart rates in the low 30s and became somewhat unresponsive. He was given atropine 0.5 mg IV and epinephrine 1 amp, his heart rate improved and the patient was more awake. CPR was never performed. He denies any chest discomfort. PAST MEDICAL HISTORY: Hypertension, hypothyroidism, gout, benign prostatic hypertrophy, atrial fibrillation in the past with cardioversion in 2002 and also earlier this month, anemia of end-stage renal disease, on dialysis. OPERATIONS: Right forearm AV fistula. MEDICATIONS: Allopurinol 100 daily, amiodarone 400 mg b.i.d., Eliquis 5 mg b.i.d., carvedilol 12.5 mg b.i.d., levothyroxine 25 mcg daily, lisinopril 2.5 mg b.i.d., terazosin 2 mg at bedtime, and Renvela 1600 mg t.i.d. ALLERGIES: None. SOCIAL HISTORY: He does not smoke or drink. FAMILY HISTORY: Unremarkable. REVIEW OF SYSTEMS: Twelve-point review of systems unremarkable. PHYSICAL EXAMINATION: VITAL SIGNS: Blood pressure 104/59, pulse 64. HEENT: PERRL. NECK: Supple. CHEST: Reveals crackles at the bases. CARDIAC: S1 and S2 are normal without any S3, S4. There is 1/6 holosystolic murmur at the apex. Carotid upstrokes normal without bruits. ABDOMEN: Normal bowel sounds without tenderness or organomegaly. EXTREMITIES: Revealed no clubbing, cyanosis or edema. NEUROLOGIC: Grossly intact. LABORATORY DATA: EKG revealed normal sinus rhythm, possible left atrial enlargement and interventricular conduction delay - probable left bundle-branch block. Chest x-ray revealed bilateral interstitial alveolar opacities, nonspecific, probably due to pulmonary edema. Hemoglobin 11.5, hematocrit 37.8 , white count 9500, platelets 146,000. INR 1.7, pH 7.49, pCO2 38.5, pO2 79.8. Sodium 139, potassium 4.9, chloride 97, carbon dioxide 29, BUN 36, creatinine 8.66. Troponin I is up to 0.869, LDL earlier this month was 41. IMPRESSION: 1. Volume overload and pulmonary edema. 2. Severe left ventricular dysfunction, ejection fraction of 15%-20%. 3. Left bundle-branch block. 4. Americo episodes with heart rate in the 30s. This certainly could have been vasovagal and exacerbated by his hypoxemia. 5. Atrial fibrillation in 2002 and earlier this month with electrical cardioversion. 6. The patient is on amiodarone. 7. Hypertension. 8. End-stage renal disease. 9. Hypothyroidism. 10. Gout. 11. Benign prostatic hypertrophy. PLAN: Mr. Lyons does have increase in his troponin I, but never complained of chest discomfort. This probably is due to demand ischemia. With his severe left ventricular dysfunction, he certainly is not a candidate for bypass surgery and I do not feel that having him undergo cardiac catheterization will be of any benefit. I will consult Electrophysiology. He has significant bradycardic episode and thought should be given to implantation of a biventricular ICD with his QRS of 144 milliseconds. I will follow the patient with you. NABOR
[2017-11-14] MEDS: Terazosin HCl 1 MG CAP PO SCH (23:12)
[2017-11-15] MEDS: Piperacillin/Tazobactam 2.25 GM in Sodium Chloride 0.9% 100 ML IVPB SCH ×2 (02:08→17:41)
[2017-11-15] MEDS: Levothyroxine Sodium 25 MCG TAB PO SCH (05:17)
[2017-11-15] MEDS ORDERED: Apixaban 5 MG TAB PO SCH (07:30)
--- NOTE | 2017-11-15 09:37 | PDOC.PN ---
- Subjective Encounter Start Date: 11/15/17 Encounter Start Time: 09:33 Mr. Lyons was seen today in follow-up of acute on chronic systolic heart failure exacerbation. He is feeling fine today. He denies feeling chest pain,or dyspnea. He denies nausea or vomting. - Objective Resuscitation Status: Resuscitation Status FULL:Full Resuscitation MAR Reviewed: Yes Vital Signs & Weight: Vital Signs (12 hours) Temp Pulse 11/15/17 04:00 98.4 F 11/15/17 00:00 98.1 F 11/14/17 23:13 71 Most Recent Monitor Data Heart Rate from ECG 67 NIBP 114/66 NIBP BP-Mean 81 Respiration from ECG 16 SpO2 99 I&O: 11/14/17 11/15/17 11/16/17 06:59 06:59 06:59 Intake Total 356 1240 Output Total 0 0 Balance 356 1240 Result Diagrams: 11/14/17 08:19 11/14/17 08:19 Phys Exam - Physical Examination HEENT: PERRLA + scattered rales, no wheezing or rhonchi Cardiovascular: RRR, no significant murmur, no rub Gastrointestinal: soft, non-tender, no distention, positive bowel sounds Musculoskeletal: no edema Dx/Plan (1) Elevated troponin Code(s): R74.8 - ABNORMAL LEVELS OF OTHER SERUM ENZYMES Status: Acute (2) Healthcare-associated pneumonia Code(s): J18.9 - PNEUMONIA, UNSPECIFIED ORGANISM Status: Acute (3) Acute respiratory failure with hypoxia Code(s): J96.01 - ACUTE RESPIRATORY FAILURE WITH HYPOXIA Status: Acute Comment: suspected secondary to volume overload, resolved (4) ESRD (end stage renal disease) on dialysis Code(s): N18.6 - END STAGE RENAL DISEASE; Z99.2 - DEPENDENCE ON RENAL DIALYSIS Status: Chronic Comment: HD per renal service (5) HTN (hypertension) Code(s): I10 - ESSENTIAL (PRIMARY) HYPERTENSION Status: Chronic Qualifiers: Comment: Stable currently, resume home BP regimen - Plan * Healthcare Associated Pneumonia- Continue Vancomycin and Zosyn * Acute on chronic systolic heart failure- compensated. He has been evaluated by Cardiology, and the plan is to have EP evaluation * HTN- blood pressure is stable * Elevated troponins- thought to be demand ischemia from CHF exacerbation, and pneumonia * ESRD- stable.
[2017-11-15] MEDS: Carvedilol 25 MG TAB PO SCH ×2 (09:40→17:53)
[2017-11-15] MEDS: Amiodarone 200 MG TAB PO SCH ×3 (09:41→20:53)
[2017-11-15] MEDS: Allopurinol 100 MG TAB PO SCH (09:41)
[2017-11-15] MEDS: Lisinopril 2.5 MG TAB PO SCH ×2 (09:44→20:52)
[2017-11-15] MEDS: Folic Acid/Vit B Comp W-C PO SCH (09:44)
[2017-11-15] MEDS: Sevelamer Carbonate 800 MG TAB PO SCH ×3 (09:44→20:53)
--- NOTE | 2017-11-15 10:03 | PRG ---
Patient Name: SARAI IZAGUIRRE Date of service: 11/15/2017 Subjective: Patient was seen and examined at bedside and overnight events noted. Patient denies any shortness of breath or chest pain or palpitation. No history of nausea or vomiting or diarrhea or fever or chills or cramps. Objective: General: This is a thin-built male in no apparent distress. Vital signs: Temperature 98.4, pulse 69, respiratory 18, blood pressure 114/66. HEENT: Atraumatic, normocephalic. Oral mucosa is moist. Neck: Supple. Cardiovascular: S1 S2 heard. Rate and rhythm regular. Respiratory: Clear to auscultation. Gastrointestinal: Abdomen is soft. Musculoskeletal: No tenderness. No edema. Dermatologic: No skin rash. Neurologic: Alert and awake and oriented X3. No focal neurologic deficits. Moving all the extremit ies. Psychiatric: Mood and affect normal. LABORATORY DATA: No labs done today. ASSESSMENT AND PLAN: 1. End-stage renal disease. Continue dialysis Monday, Monday, and Monday, due for dialysis today . 2. Anemia. 3. Edema with fluid overload. 4. Cardiorenal syndrome. 5. Hypoalbuminemia. Overall the plan is to continue on dialysis Monday, Monday, Monday. Dialysis today.
--- NOTE | 2017-11-15 11:06 | CON ---
DATE OF CONSULTATION: 11/15/2017 ELECTROPHYSIOLOGY CONSULTATION REFERRING PHYSICIAN: Dr. Jacobo Kenny I am seeing Mr. Lyons at our [facility] ICU as an electrophysiology trousseau consultant. His problems are: 1. Episode of syncope, associated bradycardia and hypotension requiring atropine and epinephrine, then resolved. This happened in the setting of a bowel movement. 2. Acute on chronic congestive heart failure. A. History of negative stress test in 2011, reduced LVEF on 2D echo at 15-20% , severe mitral regurgitation, moderate left atrial enlargement, mild aortic regurgitation, severe tricuspid regurgitation, pulmonic regurgitation on 2017. B. HARSHA for cardioversion 10/27/2017 with severely reduced LVEF, no clots, moderate to severe MR, moderate tricuspid regurgitation. 3. Persistent atrial fibrillation noted in 2002 requiring cardioversion then and recurrence in 10/2017 requiring amiodarone and repeat cardioversion. 4. Ongoing LifeVest prophylaxis. 5. History of end-stage renal disease on hemodialysis with a right lower arm fistula. 6. History of hypothyroidism. ALLERGIES: None noted. MEDICATIONS AT HOME: Terazosin, levothyroxine, allopurinol, vitamin B complex, sevelamer, apixaban 5 mg twice a day, carvedilol, 6.25/12.5 mg alternating twice a day, lisinopril 2.5 mg twice a day, amiodarone 400 mg p.o. b.i.d. SUBJECTIVE: Mr. Lyons was admitted with progressive dyspnea. He had a worsening cough, clear phlegm, some fevers are felt though. This worsened after dialysis on Monday. He had poor oxygen saturations. He was admitted and BiPAP was required. His dialysis continued on daily basis. Borderline troponins were noted only. On subsequent day while trying to have a bowel movement at the bedside commode the patient developed some bradycardia and hypotension and a Code Blue was called. He received atropine and epinephrine that quickly reverted the event and he never received CPR. Currently, he is doing well. He has no chest pains, no fever, chills or cough. No dizziness at the present time, his blood pressure and heart rate remains reasonably stable. OBJECTIVE DATA: VITAL SIGNS: Currently, 114/66, heart rate 67, respiration 16, temperature 98.4 degrees Fahrenheit. GENERAL: He is alert and oriented -Maced[place] man in no apparent distress. NECK: Supple. Jugular veins not distended. CHEST: Coarse, no crackles. CARDIOVASCULAR: Heart sounds are regular rate and rhythm, 3/6 holosystolic murmur is heard in the precordial area. The PMI is laterally displaced. ABDOMEN: Benign. Bowel sounds positive. No hepatosplenomegaly felt. EXTREMITIES: Right lower arm is with a functioning AV fistula in place. Lower extremity with no edema, clubbing or cyanosis. Pulses are adequate. NEUROLOGIC: Patient nonfocal. MUSCULOSKELETAL: Joints without deformities. SKIN: Without rash. DATABASE: EKG is reviewed. Initial EKG reveals sinus rhythm with a left bundle branch block, QRS duration is 144 milliseconds, DC interval 164 milliseconds, QTC 528 milliseconds. The subsequent EKG from 11/14/2017 after the event revealed sinus tachycardia at 122 beats per minute. The episode of bradycardia revealed junctional escape rhythm and the heart rates are 36. LABORATORY DATA: White count 9.5 yesterday, hemoglobin 9.5, platelet count is 146. Sodium 139, potassium 4.2, BUN is 36, creatinine 8.66. Troponins are 0.263, then 0.7, 0.869, 0.762. ASSESSMENT AND PLAN: Mr. Lyons is a 52-year-old male with prior history of end-stage renal disease and persistent atrial fibrillation episodes in the past. He was recently hospitalized with episode and his LVEF was found to be severely reduced in the 20% range, currently wearing a LifeVest. He did develop some respiratory failure, possibly in the basis of heart failure exacerbation, fluid overload. He was hospitalized and while on telemetry, he developed some bradycardia and hypotension. This could have been a vagal induced. Hence it was in the setting of having a bowel movement. This gentleman is definitely a high risk individual with severely reduced LV function. The above bradycardia episode likely was provoked by vagal stimulation , but Amiodarone and carvedilol could have contributed, but he does not have significant bradycardia, otherwise. On the other hand, these medications will be required to keep him out of atrial fibrillationa and maintain sinus rhythm which would be the best route for improving his LV function. In this situation, pacing could be a strong consideration, especially biventricular pacing, hence the patient's underlying left bundle branch block and LV dysfunction and likely LV dyssynchrony which tyroneley contributes to his worsening heart failure exacerbation. I would like to perform a repeat echocardiogram to assess candidacy of prophylactic ICD implant even though relatively early if LVEF is still reduced, I think it is reasonable to consider a biventricular ICD instead of biventricular pacemaker. These issues were discussed with him. We will order echocardiogram and keep him without breakfast tomorrow morning. NABOR
--- NOTE | 2017-11-15 15:28 | PRG ---
DATE OF SERVICE: 11/15/2017 SUBJECTIVE: Faby Lyons is in no distress. PHYSICAL EXAMINATION: VITAL SIGNS: He is afebrile, blood pressure 133/76, heart rate 62, respiratory rate 22. He has had no more syncope. LUNGS: Clear. HEART: Regular rhythm. ABDOMEN: Soft and nontender. EXTREMITIES: Without asymmetry or edema. NEUROLOGIC: Grossly nonfocal. He was sitting in the chair by the bed eating lunch. When I evaluate d him, he is tolerating his meals. IMPRESSION: 1. Episode of syncope while sitting at the bedside associated with bradycardia and low blood pressur e. 2. Acute on chronic congestive heart failure. 3. History of a negative stress test. 4. Systolic cardiomyopathy. 5. History of atrial fibrillation. 6. LifeVest in place. 7. End-stage renal disease on hemodialysis. 8. History of hypothyroidism. PLAN: Continue supportive care in the ICU for now.
[2017-11-15] MEDS: Terazosin HCl 1 MG CAP PO SCH (20:53)
[2017-11-16] MEDS: Levothyroxine Sodium 25 MCG TAB PO SCH (02:16)
[2017-11-16] MEDS: Piperacillin/Tazobactam 2.25 GM in Sodium Chloride 0.9% 100 ML IVPB SCH ×2 (03:20→16:46)
[2017-11-16] MEDS: Lisinopril 2.5 MG TAB PO SCH ×2 (09:15→21:17)
[2017-11-16] MEDS: Carvedilol 25 MG TAB PO SCH ×2 (09:16→16:45)
[2017-11-16] MEDS: Allopurinol 100 MG TAB PO SCH (09:17)
[2017-11-16] MEDS: Folic Acid/Vit B Comp W-C PO SCH (09:18)
[2017-11-16] MEDS: Amiodarone 200 MG TAB PO SCH ×3 (09:18→21:17)
[2017-11-16] MEDS: Sevelamer Carbonate 800 MG TAB PO SCH ×3 (09:18→21:17)
[2017-11-16] MEDS ORDERED: Iopamidol 370 76% 50 ML VIAL FS ONE (09:39)
[2017-11-16] MEDS ORDERED: Lidocaine 1% (PF) 30 ML VIAL ONE ×2 (10:50→11:38)
[2017-11-16] MEDS ORDERED: CEFAZOLIN/Water 2 GM/20 ML SYRINGE ONE (10:50)
[2017-11-16] MEDS ORDERED: Midazolam HCl 2 mg/2 ml Vial ONE (11:23)
[2017-11-16] MEDS ORDERED: Fentanyl 100 MCG/2 ML VIAL ONE (11:23)
--- NOTE | 2017-11-16 13:17 | PRG ---
DATE OF SERVICE: 11/16/2017 SUBJECTIVE: Patient was seen and examined at bedside and overnight events noted. Patient denies any shortness of breath or chest pain or palpitation. No history of nausea or vomiting or diarrhea or fever or chills or cramps. OBJECTIVE: GENERAL: This is a well-built male in no apparent distress. VITAL SIGNS: Temperature 97.9, pulse 74, respiratory rate 20, blood pressure 148/76. HEENT: Atraumatic, normocephalic. Oral mucosa is moist. NECK: Supple CARDIOVASCULAR: S1, S2 heard. Rate and rhythm regular. RESPIRATORY: Clear to auscultation. GASTROINTESTINAL: Abdomen is soft. MUSCULOSKELETAL: No tenderness, no edema. DERMATOLOGIC: No skin rash. NEUROLOGIC: Alert and awake and oriented x3. No focal neurologic deficits. Moving all the extremities. PSYCHIATRIC: Mood and affect normal. LABORATORY DATA: No labs done today. ASSESSMENT AND PLAN: 1. End-stage renal disease, continue hemodialysis Monday, Monday, and Monday. 2. Anemia. Monitor. 3. Cardiorenal syndrome 4. Hypertension 5. Edema. We will remove fluid with dialysis. We will attempt to remove fluid with dialysis as tolerated. MTDD
--- NOTE | 2017-11-16 14:01 | PDOC.PN ---
- Subjective Encounter Start Date: 11/16/17 Encounter Start Time: 08:40 Pt seen for followup re: acute hypoxic respiratory failure. Denies chest pain, shortness of breath, fevers or chills. - Objective Resuscitation Status: Resuscitation Status FULL:Full Resuscitation MAR Reviewed: Yes Vital Signs & Weight: Vital Signs (12 hours) Temp Pulse Resp BP Pulse Ox 11/16/17 09:15 75 143/78 H 11/16/17 08:00 97.9 F 75 20 97 11/16/17 07:00 97.9 F 11/16/17 04:00 99.2 F Most Recent Monitor Data Heart Rate from ECG 82 NIBP 156/93 NIBP BP-Mean 110 Respiration from ECG 27 SpO2 80 I&O: 11/15/17 11/16/17 11/17/17 06:59 06:59 06:59 Intake Total 1240 825 50 Output Total 0 100 Balance 1240 725 50 Result Diagrams: 11/14/17 08:19 11/14/17 08:19 EKG Reviewed by me: Yes (Tele: NSR) Phys Exam - Physical Examination Constitutional: NAD HEENT: moist MMs, sclera anicteric, oral pharynx no lesions, 2+ tonsils Neck: no nodes, no JVD, supple, full ROM Respiratory: no wheezing, no rhonchi Hao crackles Cardiovascular: RRR S1, S2 Gastrointestinal: soft, non-tender, no distention, positive bowel sounds Musculoskeletal: edema present Neurological: moves all 4 limbs Psychiatric: normal affect Deviation from normal: Oriented to person and place, not to time Dx/Plan (1) Acute respiratory failure with hypoxia Code(s): J96.01 - ACUTE RESPIRATORY FAILURE WITH HYPOXIA Status: Acute Comment: Improved after dialysis, likely due to volume overload (2) Cardiomyopathy Code(s): I42.9 - CARDIOMYOPATHY, UNSPECIFIED Status: Acute Comment: pt to have AICD placed today (3) Volume overload Code(s): E87.70 - FLUID OVERLOAD, UNSPECIFIED Status: Acute Comment: Improved (4) ESRD (end stage renal disease) on dialysis Code(s): N18.6 - END STAGE RENAL DISEASE; Z99.2 - DEPENDENCE ON RENAL DIALYSIS Status: Chronic Comment: dialysis per nephrology service (5) HTN (hypertension) Code(s): I10 - ESSENTIAL (PRIMARY) HYPERTENSION Status: Chronic Qualifiers: Comment: Monitor vital signs, titrate antihypertensives as needed - Plan * . Review of Systems - Review of Systems Respiratory: negative: Cough, Shortness of Breath, SOB with Excertion, Pleuritic Pain, Wheezing Cardiovascular: negative: chest pain, palpitations, orthopnea, paroxysmal nocturnal dyspnea, edema, light headedness Gastrointestinal: negative: Nausea, Vomiting, Abdominal Pain, Diarrhea, Constipation, Melena, Hematochezia Genitourinary: negative: Dysuria, Frequency, Incontinence, Hematuria, Retention Skin: negative: Rash, Lesions, Carlos, Bruising - Medications/Allergies Allergies/Adverse Reactions: Allergies Allergy/AdvReac Type Severity Reaction Status Date / Time No Known Drug Allergies Allergy Verified 11/14/17 03:18 Medications: Current Medications Acetaminophen (Tylenol) 650 mg PO Q4H PRN PRN Reason: Headache/Fever or Pain Allopurinol (Zyloprim) 100 mg PO DAILY [facility] Last Admin: 11/16/17 09:17 Dose: 100 mg Amiodarone HCl (Cordarone) 400 mg PO TID [facility] Last Admin: 11/16/17 09:18 Dose: 400 mg Apixaban (Eliquis) 5 mg PO BID [facility] Carvedilol (Coreg) 12.5 mg PO BID-[facility] Last Admin: 11/16/17 09:16 Dose: 12.5 mg Piperacillin Sod/Tazobactam (Sod 2.25 gm/ Sodium Chloride) 100 mls @ 200 mls/ hr IVPB 0300,1500 [facility] Last Admin: 11/16/17 03:20 Dose: 100 mls Vancomycin HCl 1 gm/ Device 200 mls @ 200 mls/hr IVPB WILLCALL [facility] Vancomycin HCl 750 mg/ Sodium (Chloride) 250 mls @ 250 mls/hr IVPB [facility]CALL [facility] Vancomycin HCl 500 mg/ Sodium (Chloride) 100 mls @ 100 mls/hr IVPB [facility]CALL [facility] Vancomycin HCl 250 mg/ Sodium (Chloride) 100 mls @ 100 mls/hr IVPB [facility]CALL [facility] Levothyroxine Sodium (Synthroid) 25 mcg PO 0600 [facility] Last Admin: 11/16/17 02:16 Dose: Not Given Lisinopril (Zestril) 2.5 mg PO BID [facility] Last Admin: 11/16/17 09:15 Dose: 2.5 mg Miscellaneous Medication (Pharmacy To Dose) 1 each IVPB PRN PRN PRN Reason: ABX Hold Vancomycin For (Level >20) 0 each FS .AT DIALYSIS [facility] Ondansetron HCl (Zofran) 4 mg IVP Q6H PRN PRN Reason: Nausea/Vomiting Sevelamer Carbonate (Renvela) 1,600 mg PO TID [facility] Last Admin: 11/16/17 09:18 Dose: 1,600 mg Terazosin HCl (Hytrin) 2 mg PO HS [facility] Last Admin: 11/15/17 20:53 Dose: 2 mg Vitamin B Complex/Vit C/Folic Acid (Nephro-Lisa Tablet) 1 tab PO DAILY [facility] Last Admin: 11/16/17 09:18 Dose: 1 tab
[2017-11-16] MEDS ORDERED: Acetaminophen/Codeine 30-300mg Tablet PO PRN (14:33)
[2017-11-16] MEDS: Acetaminophen/Codeine 30-300mg Tablet PO PRN (15:14)
--- NOTE | 2017-11-16 19:39 | PRG ---
DATE OF SERVICE: 11/16/2017 SUBJECTIVE: Mr. Lyons did well overnight. He has had no problems today. OBJECTIVE: VITAL SIGNS: Vital signs remained stable. He is deemed stable enough by the chief clinical dietitian randi in [facility] critical care unit. His heart rate 75, he is afebrile, blood pressure is 143/78. LUNGS, HEART, AND ABDOMEN: Unchanged. IMPRESSION: 1. Status post brief code with hypotension and bradycardia. 2. End-stage renal disease. 3. Systolic cardiomyopathy with ejection fraction 20% to 25% and severe mitral regurgitation. PLAN: Continue supportive care. He is still in the critical care unit. We will see him as needed i n the future.
[2017-11-16] MEDS: Terazosin HCl 1 MG CAP PO SCH (21:17)
[2017-11-16] MEDS: Benzonatate 100 MG CAP PO SCH (21:17)
[2017-11-17] MEDS: Piperacillin/Tazobactam 2.25 GM in Sodium Chloride 0.9% 100 ML IVPB SCH (03:36)
[2017-11-17] MEDS: Acetaminophen/Codeine 30-300mg Tablet PO PRN (03:37)
[2017-11-17] MEDS: Levothyroxine Sodium 25 MCG TAB PO SCH (05:04)
--- NOTE | 2017-11-17 07:53 | RAD ---
CHEST UPRIGHT PORTABLE: HISTORY: A 52-year-old male with a history of post AICD. COMPARISON: 11/14/17. FINDINGS: Left ICD. No pneumothorax or pleural effusion. Cardiomegaly. Resolution of the bilateral alveolar and interstitial pulmonary opacity changes and pleural effusions. No new process. IMPRESSION: Left implantable cardioverter defibrillator without pneumothorax or pleural effusion. Cardiomegaly w ithout evidence for overt edema. Resolution of the previously noted bilateral alveolar opacities. POS: OFF
[2017-11-17 08:57] LABS: #Eosinphils 0.9 thou/uL (0.0-0.7); #Lymphocytes 0.8 thou/uL (1.20-3.40); #Monocytes 0.3 thou/uL (0.11-0.59); #Neutrophils 3.7 thou/uL (1.40-6.50); %Basophils 0.1 % (0.0-1.0); %Eosinophils 16.4 % (0.0-10.0); %Monocytes 5.2 % (0.0-10.0); %Neutrophils 65.2 % (42.0-75.0); Hemoglobin 9.5 g/dL (14.0-18.0); Mean Corpuscular HGB CONC 30.7 g/dL (32.0-36.0); Mean Corpuscular Hemoglobin 27.9 pg (27.0-31.0); Mean Corpuscular Volume 90.8 fL (78.0-98.0); Mean Platelet Volume 9.1 fL (7.4-10.4); Platelet Count 158 thou/uL (130-400); RBC Distribution Width 17.5 % (11.5-14.5); Red Blood Cell (RBC) Count 3.41 mill/uL (4.70-6.10); White Blood Cell (WBC) Count 5.7 thou/uL (4.8-10.8)
[2017-11-17 09:07] LABS: Vancomycin, Random 9.4 ug/mL (See Comment)
[2017-11-17 09:08] LABS: Anion Gap 16 mmol/L (10-20); BUN (Urea Nitrogen) 42 mg/dL (8.4-25.7); Calc. Creatinine Clearance 9 mL/min (70-130); Calcium 9.1 mg/dL (7.8-10.44); Carbon Dioxide 29 mmol/L (22-29); Chloride 97 mmol/L (98-107); Estimated GFR-MDRD 7; Glucose 112 mg/dL (70-105); Potassium 4.2 mmol/L (3.5-5.1); Sodium 138 mmol/L (136-145)
[2017-11-17] MEDS: Sevelamer Carbonate 800 MG TAB PO SCH ×3 (09:30→21:00)
[2017-11-17] MEDS: Benzonatate 100 MG CAP PO SCH ×3 (09:30→20:59)
[2017-11-17] MEDS: Amiodarone 200 MG TAB PO SCH ×2 (09:31→21:00)
[2017-11-17] MEDS ORDERED: Cefdinir 300 MG CAP PO SCH ×2 (11:00→21:00)
--- NOTE | 2017-11-17 12:04 | PRG ---
Patient Name: SARAI IZAGUIRRE Date of service: 11/17/2017 Subjective: Patient was seen and examined at bedside and overnight events noted. Patient denies any shortness of breath or chest pain or palpitation. No history of nausea or vomiting or diarrhea or fever or chills or cramps. Objective: General: This is a well-built male in no apparent distress. Vital signs: Temperature 97.9, pulse 61, respiratory rate 18, blood pressure 137/75. HEENT: Atraumatic, normocephalic. Oral mucosa is moist. Neck: Supple. Cardiovascular: S1 S2 heard. Rate and rhythm regular. Respiratory: Clear to auscultation. Gastrointestinal: Abdomen is soft. Musculoskeletal: No tenderness. No edema. Dermatologic: No skin rash. Neurologic: Alert and awake and oriented X3. No focal neurologic deficits. Moving all the extremit ies. Psychiatric: Mood and affect normal. LABORATORY DATA: Potassium is 4.2, BUN 42, creatinine is 9.7. ASSESSMENT AND PLAN: 1. End-stage renal disease, on hemodialysis Monday, Monday and Monday. 2. Anemia. Monitor hemoglobin. 3. Edema. 4. Cardiorenal syndrome. 5. Hypertension, stable. We will continue dialysis Monday, Monday and Monday. The patient was seen during dialysis, tolera ting well. Advised to limit fluid and salt intake.
[2017-11-17] MEDS: Lisinopril 2.5 MG TAB PO SCH ×2 (12:42→20:59)
[2017-11-17] MEDS: Carvedilol 25 MG TAB PO SCH ×2 (12:42→16:50)
[2017-11-17] MEDS: Allopurinol 100 MG TAB PO SCH (13:12)
[2017-11-17] MEDS: Folic Acid/Vit B Comp W-C PO SCH (13:15)
--- NOTE | 2017-11-17 18:42 | PDOC.PN ---
- Subjective Encounter Start Date: 11/17/17 Encounter Start Time: 18:40 Pt seen for followup re: acute hypoxic respiratory failure. Feels better, no chest pain, shortness of breath, fevers or chills. - Objective Resuscitation Status: Resuscitation Status FULL:Full Resuscitation MAR Reviewed: Yes Vital Signs & Weight: Vital Signs (12 hours) Temp Pulse Resp BP Pulse Ox 11/17/17 16:48 99.7 F H 88 16 157/77 H 95 11/17/17 13:09 83 16 160/77 H 95 11/17/17 08:00 97.9 F 67 16 95 11/17/17 07:48 97.9 F 67 16 137/75 95 11/17/17 07:22 94 L Most Recent Monitor Data Heart Rate from ECG 82 NIBP 156/93 NIBP BP-Mean 110 Respiration from ECG 27 SpO2 80 I&O: 11/16/17 11/17/17 11/18/17 06:59 06:59 06:59 Intake Total 825 50 Output Total 100 Balance 725 50 Result Diagrams: 11/17/17 08:33 11/17/17 08:33 EKG Reviewed by me: Yes (Tele: NSR) Phys Exam - Physical Examination Constitutional: NAD HEENT: moist MMs Neck: supple Respiratory: no wheezing, no rales Cardiovascular: RRR Gastrointestinal: soft Neurological: moves all 4 limbs Psychiatric: normal affect Dx/Plan (1) Acute respiratory failure with hypoxia Code(s): J96.01 - ACUTE RESPIRATORY FAILURE WITH HYPOXIA Status: Acute Comment: Improved (2) Cardiomyopathy Code(s): I42.9 - CARDIOMYOPATHY, UNSPECIFIED Status: Acute Comment: Pt had AICD today, but one of the electrodes is loose, will need to be fixed on monday (3) Volume overload Code(s): E87.70 - FLUID OVERLOAD, UNSPECIFIED Status: Acute (4) HTN (hypertension) Code(s): I10 - ESSENTIAL (PRIMARY) HYPERTENSION Status: Chronic Qualifiers: Comment: titrate antihypertensives as needed (5) ESRD (end stage renal disease) on dialysis Code(s): N18.6 - END STAGE RENAL DISEASE; Z99.2 - DEPENDENCE ON RENAL DIALYSIS Status: Resolved Comment: dialysis per nephrology service - Plan * . Review of Systems - Review of Systems Constitutional: negative: fever, chills, sweats, weakness, malaise Respiratory: negative: Cough, Shortness of Breath, SOB with Excertion, Pleuritic Pain, Wheezing - Medications/Allergies Allergies/Adverse Reactions: Allergies Allergy/AdvReac Type Severity Reaction Status Date / Time No Known Drug Allergies Allergy Verified 11/14/17 03:18 Medications: Current Medications Acetaminophen (Tylenol) 650 mg PO Q4H PRN PRN Reason: Headache/Fever or Pain Acetaminophen/Codeine Phosphate (Tylenol #3) 1 tab PO Q4H PRN PRN Reason: Mild Pain (1-3) Acetaminophen/Codeine Phosphate (Tylenol #3) 2 tab PO Q4H PRN PRN Reason: Moderate Pain (4-6) Last Admin: 11/17/17 03:37 Dose: 2 tab Allopurinol (Zyloprim) 100 mg PO DAILY [facility] Last Admin: 11/17/17 13:12 Dose: 100 mg Amiodarone HCl (Cordarone) 200 mg PO BID [facility] Apixaban (Eliquis) 5 mg PO BID [facility] Benzonatate (Tessalon) 100 mg PO TID [facility] Last Admin: 11/17/17 13:12 Dose: 100 mg Carvedilol (Coreg) 12.5 mg PO BID-[facility] Last Admin: 11/17/17 16:50 Dose: 12.5 mg Vancomycin HCl 1 gm/ Device 200 mls @ 200 mls/hr IVPB WILLCALL [facility] Vancomycin HCl 750 mg/ Sodium (Chloride) 250 mls @ 250 mls/hr IVPB [facility] Last Admin: 11/17/17 10:36 Dose: 250 mls Vancomycin HCl 500 mg/ Sodium (Chloride) 100 mls @ 100 mls/hr IVPB [facility]CALL [facility] Levothyroxine Sodium (Synthroid) 25 mcg PO 0600 [facility] Last Admin: 11/17/17 05:04 Dose: 25 mcg Lisinopril (Zestril) 2.5 mg PO BID [facility] Last Admin: 11/17/17 12:42 Dose: Not Given Miscellaneous Medication (Pharmacy To Dose) 1 each IVPB PRN PRN PRN Reason: ABX Hold Vancomycin For (Level >20) 0 each FS .AT DIALYSIS [facility] Ondansetron HCl (Zofran) 4 mg IVP Q6H PRN PRN Reason: Nausea/Vomiting Sevelamer Carbonate (Renvela) 1,600 mg PO TID [facility] Last Admin: 11/17/17 13:12 Dose: 1,600 mg Sodium Chloride (Flush - Normal Saline) 10 ml IVF Q12HR [facility] Last Admin: 11/17/17 13:13 Dose: 10 ml Sodium Chloride (Flush - Normal Saline) 10 ml IVF PRN PRN PRN Reason: Saline Flush Terazosin HCl (Hytrin) 2 mg PO HS [facility] Last Admin: 11/16/17 21:17 Dose: 2 mg Vitamin B Complex/Vit C/Folic Acid (Nephro-Lisa Tablet) 1 tab PO DAILY [facility] Last Admin: 11/17/17 13:15 Dose: 1 tab
[2017-11-17] MEDS: Terazosin HCl 1 MG CAP PO SCH (21:00)
[2017-11-18] MEDS: Acetaminophen 325 MG TAB PO PRN ×2 (00:01→21:20)
--- NOTE | 2017-11-18 01:28 | DIS ---
DATE OF ADMISSION: 11/14/2017 DATE OF DISCHARGE: 11/17/2017 PRIMARY CARE PROVIDER: Kelby Ndiaye M.D. DISCHARGE DIAGNOSES: 1. Systolic cardiomyopathy. 2. Volume overload and pulmonary edema. 3. Acute respiratory failure with hypoxia. 4. Healthcare-associated pneumonia. CONSULTATIONS DURING THIS HOSPITALIZATION: Cardiology, Dr. Kenny; Electrophysiology, Dr. Herzog; Pu lmonology, Dr. Moreno; and Nephrology, Dr. Andrew. CONDITION OF PATIENT ON THE DAY OF DISCHARGE: Stable. I assessed Mr. Lyons on the day of dischar . He denies any chest pain or shortness of breath. S1 and S2 are heard, regular. Lungs are clear to auscultation bilaterally. HOSPITAL COURSE: Mr. Lyons is a pleasant 52-year-old gentleman, who was admitted to [facility] on 11/14/2017 for hypoxic respiratory failure, needing BiPAP support and possibl e pneumonia. On 11/14/2017, there was a code, because he was hypotensive and bradycardic. He was se en by Cardiology, Pulmonology, and Electrophysiology services. He is known to have severe left ventr icular dysfunction, with an ejection fraction of 15%-20%. He had AICD placed on 11/16/2017. He was also seen by Nephrology service for dialysis for volume overload as well as for maintenance di alysis. The most likely cause of respiratory failure at the time of admission was a combination of healthcare -associated pneumonia and volume overload. On the day of discharge, he has white count 5700, hemoglobin 9.5, platelet count 158,000. Blood urea nitrogen 42 and creatinine 9.77. DISCHARGE MEDICATIONS: Allopurinol 100 mg daily, amiodarone dose decreased to 200 mg 2 times a day, Dialyvite plus zinc 1 tablet daily, Coreg 12.5 mg 2 times a day, Keflex 500 mg 4 times a day for 1 we ek, levothyroxine 25 mcg daily, lisinopril 2.5 mg 2 times a day, Renvela 1600 mg 3 times a day, and t erazosin 2 mg at bedtime. He is advised to stop apixaban and to resume it starting with the morning dose on 11/19/2017. Many thanks for allowing me to participate in your patient's care. Please feel free to contact me wi th any questions or concerns. DISCHARGE DESTINATION: Home. TOTAL AMOUNT OF TIME SPENT COORDINATING THIS DISCHARGE: 33 minutes.
[2017-11-18 05:11] LABS: #Monocytes 0.4 thou/uL (0.11-0.59); %Basophils 0.8 % (0.0-1.0); %Eosinophils 18.2 % (0.0-10.0); Hemoglobin 9.1 g/dL (14.0-18.0); Mean Corpuscular HGB CONC 32.1 g/dL (32.0-36.0); Mean Corpuscular Hemoglobin 28.8 pg (27.0-31.0); Mean Corpuscular Volume 89.7 fL (78.0-98.0); Mean Platelet Volume 8.2 fL (7.4-10.4); Platelet Count 159 thou/uL (130-400); RBC Distribution Width 17.3 % (11.5-14.5); Red Blood Cell (RBC) Count 3.16 mill/uL (4.70-6.10); White Blood Cell (WBC) Count 5.4 thou/uL (4.8-10.8)
[2017-11-18 05:22] LABS: Anion Gap 10 mmol/L (10-20); BUN (Urea Nitrogen) 26 mg/dL (8.4-25.7); Calc. Creatinine Clearance 12 mL/min (70-130); Calcium 9.1 mg/dL (7.8-10.44); Carbon Dioxide 32 mmol/L (22-29); Chloride 100 mmol/L (98-107); Estimated GFR-MDRD 10; Glucose 81 mg/dL (70-105); Potassium 3.7 mmol/L (3.5-5.1); Sodium 138 mmol/L (136-145)
[2017-11-18] MEDS: Levothyroxine Sodium 25 MCG TAB PO SCH (06:28)
[2017-11-18] MEDS: Lisinopril 2.5 MG TAB PO SCH ×2 (08:16→21:20)
[2017-11-18] MEDS: Amiodarone 200 MG TAB PO SCH ×2 (08:17→21:19)
[2017-11-18] MEDS: Benzonatate 100 MG CAP PO SCH ×3 (08:17→21:19)
[2017-11-18] MEDS: Sevelamer Carbonate 800 MG TAB PO SCH ×3 (08:17→21:20)
[2017-11-18] MEDS: Carvedilol 25 MG TAB PO SCH ×2 (08:17→17:03)
[2017-11-18] MEDS: Folic Acid/Vit B Comp W-C PO SCH (08:17)
[2017-11-18] MEDS: Allopurinol 100 MG TAB PO SCH (08:17)
--- NOTE | 2017-11-18 12:46 | PDOC.PN ---
- Subjective Encounter Start Date: 11/18/17 Encounter Start Time: 07:40 Pt seen for followup re: acute hypoxic respiratory failure. Denies chest pain, shortness of breath, fevers or chills. - Objective Resuscitation Status: Resuscitation Status FULL:Full Resuscitation MAR Reviewed: Yes Vital Signs & Weight: Vital Signs (12 hours) Temp Pulse Resp BP BP BP Pulse Ox 11/18/17 11:40 130/71 96 11/18/17 08:16 81 173/90 H 11/18/17 08:00 97.8 F 81 16 97 11/18/17 07:06 97.8 F 81 16 173/90 H 97 11/18/17 03:49 97.4 F L 70 17 116/64 97 Most Recent Monitor Data Heart Rate from ECG 82 NIBP 156/93 NIBP BP-Mean 110 Respiration from ECG 27 SpO2 80 I&O: 11/17/17 11/18/17 11/19/17 06:59 06:59 06:59 Intake Total 50 Balance 50 Result Diagrams: 11/18/17 04:36 11/18/17 04:36 EKG Reviewed by me: Yes (Tele: NSR) Phys Exam - Physical Examination Constitutional: NAD HEENT: moist MMs Neck: supple Respiratory: clear to auscultation bilateral Cardiovascular: RRR Gastrointestinal: soft Neurological: moves all 4 limbs Psychiatric: normal affect Skin: no rash Dx/Plan (1) Acute respiratory failure with hypoxia Code(s): J96.01 - ACUTE RESPIRATORY FAILURE WITH HYPOXIA Status: Acute Comment: Improving (2) Cardiomyopathy Code(s): I42.9 - CARDIOMYOPATHY, UNSPECIFIED Status: Acute Comment: awaiting repair of AICD lead on Monday (3) Volume overload Code(s): E87.70 - FLUID OVERLOAD, UNSPECIFIED Status: Acute (4) HTN (hypertension) Code(s): I10 - ESSENTIAL (PRIMARY) HYPERTENSION Status: Chronic Qualifiers: Comment: titrate antihypertensives as needed (5) ESRD (end stage renal disease) on dialysis Code(s): N18.6 - END STAGE RENAL DISEASE; Z99.2 - DEPENDENCE ON RENAL DIALYSIS Status: Resolved Comment: dialysis per nephrology service - Plan * . Review of Systems - Medications/Allergies Allergies/Adverse Reactions: Allergies Allergy/AdvReac Type Severity Reaction Status Date / Time No Known Drug Allergies Allergy Verified 11/14/17 03:18 Medications: Current Medications Acetaminophen (Tylenol) 650 mg PO Q4H PRN PRN Reason: Headache/Fever or Pain Last Admin: 11/18/17 00:01 Dose: 650 mg Acetaminophen/Codeine Phosphate (Tylenol #3) 1 tab PO Q4H PRN PRN Reason: Mild Pain (1-3) Acetaminophen/Codeine Phosphate (Tylenol #3) 2 tab PO Q4H PRN PRN Reason: Moderate Pain (4-6) Last Admin: 11/17/17 03:37 Dose: 2 tab Allopurinol (Zyloprim) 100 mg PO DAILY [facility] Last Admin: 11/18/17 08:17 Dose: 100 mg Amiodarone HCl (Cordarone) 200 mg PO BID [facility] Last Admin: 11/18/17 08:17 Dose: 200 mg Apixaban (Eliquis) 5 mg PO BID [facility] Benzonatate (Tessalon) 100 mg PO TID [facility] Last Admin: 11/18/17 08:17 Dose: 100 mg Carvedilol (Coreg) 12.5 mg PO BID-[facility] Last Admin: 11/18/17 08:17 Dose: 12.5 mg Vancomycin HCl 1 gm/ Device 200 mls @ 200 mls/hr IVPB WILLCALL [facility] Vancomycin HCl 750 mg/ Sodium (Chloride) 250 mls @ 250 mls/hr IVPB [facility] Last Admin: 11/17/17 10:36 Dose: 250 mls Vancomycin HCl 500 mg/ Sodium (Chloride) 100 mls @ 100 mls/hr IVPB [facility] Levothyroxine Sodium (Synthroid) 25 mcg PO 0600 [facility] Last Admin: 11/18/17 06:28 Dose: 25 mcg Lisinopril (Zestril) 2.5 mg PO BID [facility] Last Admin: 11/18/17 08:16 Dose: 2.5 mg Miscellaneous Medication (Pharmacy To Dose) 1 each IVPB PRN PRN PRN Reason: ABX Hold Vancomycin For (Level >20) 0 each FS .AT DIALYSIS [facility] Ondansetron HCl (Zofran) 4 mg IVP Q6H PRN PRN Reason: Nausea/Vomiting Sevelamer Carbonate (Renvela) 1,600 mg PO TID [facility] Last Admin: 11/18/17 08:17 Dose: 1,600 mg Sodium Chloride (Flush - Normal Saline) 10 ml IVF Q12HR [facility] Last Admin: 11/18/17 08:16 Dose: 10 ml Sodium Chloride (Flush - Normal Saline) 10 ml IVF PRN PRN PRN Reason: Saline Flush Terazosin HCl (Hytrin) 2 mg PO HS [facility] Last Admin: 11/17/17 21:00 Dose: 2 mg Vitamin B Complex/Vit C/Folic Acid (Nephro-Lisa Tablet) 1 tab PO DAILY [facility] Last Admin: 11/18/17 08:17 Dose: 1 tab
--- NOTE | 2017-11-18 14:43 | PRG ---
DATE OF SERVICE: 11/18/2017 SUBJECTIVE: Patient was seen and examined at bedside and overnight events noted. Patient denies any shortness of breath or chest pain or palpitation. No history of nausea or vomiting or diarrhea or fever or chills or cramps. OBJECTIVE: GENERAL: This is a well-built male in no apparent distress. VITAL SIGNS: Temperature 97.8, pulse 71, respirations 18, blood pressure 178/90. HEENT: Atraumatic, normocephalic. Oral mucosa is moist. NECK: Supple. CARDIOVASCULAR: S1 and S2 heard. Rate and rhythm regular. RESPIRATORY: Clear to auscultation. GASTROINTESTINAL: Abdomen is soft. MUSCULOSKELETAL: No tenderness. No edema. DERMATOLOGIC: No skin rash. NEUROLOGIC: Alert and awake and oriented x3. No focal neurologic deficits. Moving all the extremit ies. PSYCHIATRIC: Mood and affect normal. LABORATORY DATA: Potassium is 3.7, BUN is 26, creatinine is 7.2. ASSESSMENT AND PLAN: 1. End-stage renal disease. Continue dialysis Monday, Monday, and Monday. 2. Anemia. Monitor hemoglobin. 3. Edema, remove fluid with dialysis. 4. Hypertension, stable. Remove fluid with dialysis as tolerated. The patient was advised to be highly compliant with fluid r estriction given the cardiac status. Patient was counseled about his cardiomyopathy with severe redu ction in ejection fraction. I have also counseled about the high risk of dialysis given his cardiac status. We will follow.
[2017-11-18] MEDS: Cephalexin 250 MG CAP PO SCH (17:03)
[2017-11-18] MEDS: Terazosin HCl 1 MG CAP PO SCH (21:20)
[2017-11-19] MEDS: Cephalexin 250 MG CAP PO SCH ×4 (00:49→17:18)
[2017-11-19 05:11] LABS: #Eosinphils 1.1 thou/uL (0.0-0.7); #Lymphocytes 0.9 thou/uL (1.20-3.40); #Monocytes 0.3 thou/uL (0.11-0.59); #Neutrophils 3.1 thou/uL (1.40-6.50); %Basophils 0.6 % (0.0-1.0); %Eosinophils 19.3 % (0.0-10.0); %Lymphocytes 16.8 % (21.0-51.0); %Monocytes 6.1 % (0.0-10.0); %Neutrophils 57.2 % (42.0-75.0); Hemoglobin 8.9 g/dL (14.0-18.0); Mean Corpuscular HGB CONC 32.3 g/dL (32.0-36.0); Mean Corpuscular Hemoglobin 28.9 pg (27.0-31.0); Mean Corpuscular Volume 89.2 fL (78.0-98.0); Mean Platelet Volume 8.2 fL (7.4-10.4); Platelet Count 172 thou/uL (130-400); RBC Distribution Width 17.4 % (11.5-14.5); Red Blood Cell (RBC) Count 3.09 mill/uL (4.70-6.10); White Blood Cell (WBC) Count 5.5 thou/uL (4.8-10.8)
[2017-11-19 05:32] LABS: Anion Gap 12 mmol/L (10-20); BUN (Urea Nitrogen) 41 mg/dL (8.4-25.7); Calc. Creatinine Clearance 9 mL/min (70-130); Calcium 9.4 mg/dL (7.8-10.44); Carbon Dioxide 30 mmol/L (22-29); Chloride 99 mmol/L (98-107); Estimated GFR-MDRD 7; Glucose 99 mg/dL (70-105); Potassium 3.7 mmol/L (3.5-5.1); Sodium 137 mmol/L (136-145)
[2017-11-19] MEDS: Levothyroxine Sodium 25 MCG TAB PO SCH (06:16)
[2017-11-19] MEDS: Amiodarone 200 MG TAB PO SCH ×2 (09:27→21:16)
[2017-11-19] MEDS: Allopurinol 100 MG TAB PO SCH (09:27)
[2017-11-19] MEDS: Lisinopril 2.5 MG TAB PO SCH ×2 (09:27→21:16)
[2017-11-19] MEDS: Sevelamer Carbonate 800 MG TAB PO SCH ×3 (09:27→21:16)
[2017-11-19] MEDS: Benzonatate 100 MG CAP PO SCH ×3 (09:27→21:15)
[2017-11-19] MEDS: Carvedilol 25 MG TAB PO SCH ×2 (09:28→17:18)
[2017-11-19] MEDS: Folic Acid/Vit B Comp W-C PO SCH (09:28)
--- NOTE | 2017-11-19 14:26 | PRG ---
DATE OF SERVICE: 11/19/2017 SUBJECTIVE: Patient was seen and examined at bedside and overnight events noted. Patient denies any shortness of breath or chest pain or palpitation. No history of nausea or vomiting or diarrhea or fever or chills or cramps. OBJECTIVE: GENERAL: This is a well-built male in no apparent distress. VITAL SIGNS: Temperature 98.7, pulse 79, respiratory rate 16, blood pressure 120/65. HEENT: Atraumatic, normocephalic. Oral mucosa is moist. NECK: Supple. CARDIOVASCULAR: S1 and S2 heard. Rate and rhythm regular. RESPIRATORY: Clear to auscultation. GASTROINTESTINAL: Abdomen is soft. MUSCULOSKELETAL: No tenderness. No edema. DERMATOLOGIC: No skin rash. NEUROLOGIC: Alert and awake and oriented x3. No focal neurologic deficits. Moving all the extremit ies. PSYCHIATRIC: Mood and affect normal. LABORATORY DATA: Potassium 3.7, BUN is 41, creatinine is 9.1. ASSESSMENT AND PLAN: 1. End-stage renal disease. Continue on dialysis Monday, Monday, and Monday. No dialysis today. 2. Anemia. Monitor hemoglobin. 3. Hypertension, stable. We will continue on dialysis Monday, Monday, and Monday as tolerated. Plan for dialysis tomorrow.
--- NOTE | 2017-11-19 14:37 | PDOC.PN ---
- Subjective Encounter Start Date: 11/19/17 Encounter Start Time: 08:20 Pt seen for followup re: acute hypoxic respiratory failure. Denies chest pain, shortness of breath, fevers or chills. - Objective Resuscitation Status: Resuscitation Status FULL:Full Resuscitation MAR Reviewed: Yes Vital Signs & Weight: Vital Signs (12 hours) Temp Pulse Resp BP BP Pulse Ox 11/19/17 12:21 97.3 F L 73 18 144/77 H 94 L 11/19/17 09:27 79 120/65 11/19/17 08:00 97.7 F 79 16 100 11/19/17 03:45 97.7 F 79 20 120/65 92 L 11/19/17 03:04 94 L Most Recent Monitor Data Heart Rate from ECG 82 NIBP 156/93 NIBP BP-Mean 110 Respiration from ECG 27 SpO2 80 I&O: 11/18/17 11/19/17 11/20/17 06:59 06:59 06:59 Intake Total 240 Balance 240 Result Diagrams: 11/19/17 04:19 11/19/17 04:19 EKG Reviewed by me: Yes (Tele: NSR) Phys Exam - Physical Examination Constitutional: NAD HEENT: moist MMs Neck: supple Respiratory: clear to auscultation bilateral Cardiovascular: RRR Gastrointestinal: soft Neurological: moves all 4 limbs Psychiatric: normal affect Dx/Plan (1) Acute respiratory failure with hypoxia Code(s): J96.01 - ACUTE RESPIRATORY FAILURE WITH HYPOXIA Status: Acute Comment: Improved, maintaining good saO2 on room air (2) Cardiomyopathy Code(s): I42.9 - CARDIOMYOPATHY, UNSPECIFIED Status: Acute Comment: awaiting repair of AICD lead tomorrow (3) HTN (hypertension) Code(s): I10 - ESSENTIAL (PRIMARY) HYPERTENSION Status: Chronic Qualifiers: Comment: controlled (4) ESRD (end stage renal disease) on dialysis Code(s): N18.6 - END STAGE RENAL DISEASE; Z99.2 - DEPENDENCE ON RENAL DIALYSIS Status: Resolved Comment: nephrology service following (5) Volume overload Code(s): E87.70 - FLUID OVERLOAD, UNSPECIFIED Status: Resolved - Plan * . Review of Systems - Review of Systems Respiratory: negative: Cough, Shortness of Breath, Pleuritic Pain, Wheezing Cardiovascular: negative: chest pain, palpitations, orthopnea, light headedness - Medications/Allergies Allergies/Adverse Reactions: Allergies Allergy/AdvReac Type Severity Reaction Status Date / Time No Known Drug Allergies Allergy Verified 11/14/17 03:18 Medications: Current Medications Acetaminophen (Tylenol) 650 mg PO Q4H PRN PRN Reason: Headache/Fever or Pain Last Admin: 11/18/17 21:20 Dose: 650 mg Acetaminophen/Codeine Phosphate (Tylenol #3) 1 tab PO Q4H PRN PRN Reason: Mild Pain (1-3) Acetaminophen/Codeine Phosphate (Tylenol #3) 2 tab PO Q4H PRN PRN Reason: Moderate Pain (4-6) Last Admin: 11/17/17 03:37 Dose: 2 tab Allopurinol (Zyloprim) 100 mg PO DAILY [facility] Last Admin: 11/19/17 09:27 Dose: 100 mg Amiodarone HCl (Cordarone) 200 mg PO BID [facility] Last Admin: 11/19/17 09:27 Dose: 200 mg Apixaban (Eliquis) 5 mg PO BID [facility] Benzonatate (Tessalon) 100 mg PO TID [facility] Last Admin: 11/19/17 09:27 Dose: 100 mg Carvedilol (Coreg) 12.5 mg PO BID[facility] Last Admin: 11/19/17 09:28 Dose: 12.5 mg Cephalexin (Keflex) 500 mg PO Q6HR [facility] Last Admin: 11/19/17 12:18 Dose: 500 mg Levothyroxine Sodium (Synthroid) 25 mcg PO 0600 [facility] Last Admin: 11/19/17 06:16 Dose: 25 mcg Lisinopril (Zestril) 2.5 mg PO BID [facility] Last Admin: 11/19/17 09:27 Dose: 2.5 mg Ondansetron HCl (Zofran) 4 mg IVP Q6H PRN PRN Reason: Nausea/Vomiting Sevelamer Carbonate (Renvela) 1,600 mg PO TID [facility] Last Admin: 11/19/17 09:27 Dose: 1,600 mg Sodium Chloride (Flush - Normal Saline) 10 ml IVF Q12HR [facility] Last Admin: 11/19/17 09:29 Dose: 10 ml Sodium Chloride (Flush - Normal Saline) 10 ml IVF PRN PRN PRN Reason: Saline Flush Terazosin HCl (Hytrin) 2 mg PO HS [facility] Last Admin: 11/18/17 21:20 Dose: 2 mg Vitamin B Complex/Vit C/Folic Acid (Nephro-Lisa Tablet) 1 tab PO DAILY [facility] Last Admin: 11/19/17 09:28 Dose: 1 tab
[2017-11-19] MEDS: Terazosin HCl 1 MG CAP PO SCH (21:15)
[2017-11-20] MEDS: Cephalexin 250 MG CAP PO SCH ×4 (00:56→17:35)
[2017-11-20] MEDS: Levothyroxine Sodium 25 MCG TAB PO SCH (05:09)
[2017-11-20 05:29] LABS: #Eosinphils 1.2 thou/uL (0.0-0.7); #Lymphocytes 1.1 thou/uL (1.20-3.40); #Monocytes 0.4 thou/uL (0.11-0.59); #Neutrophils 3.2 thou/uL (1.40-6.50); %Basophils 0.8 % (0.0-1.0); %Eosinophils 20.3 % (0.0-10.0); %Monocytes 6.5 % (0.0-10.0); %Neutrophils 53.5 % (42.0-75.0); Hemoglobin 8.8 g/dL (14.0-18.0); Mean Corpuscular HGB CONC 32.6 g/dL (32.0-36.0); Mean Corpuscular Hemoglobin 28.9 pg (27.0-31.0); Mean Corpuscular Volume 88.6 fL (78.0-98.0); Mean Platelet Volume 8.4 fL (7.4-10.4); Platelet Count 170 thou/uL (130-400); RBC Distribution Width 17.4 % (11.5-14.5); Red Blood Cell (RBC) Count 3.04 mill/uL (4.70-6.10); White Blood Cell (WBC) Count 5.9 thou/uL (4.8-10.8)
[2017-11-20 05:48] LABS: Anion Gap 13 mmol/L (10-20); BUN (Urea Nitrogen) 52 mg/dL (8.4-25.7); Calc. Creatinine Clearance 8 mL/min (70-130); Calcium 9.3 mg/dL (7.8-10.44); Carbon Dioxide 27 mmol/L (22-29); Chloride 100 mmol/L (98-107); Estimated GFR-MDRD 6; Glucose 85 mg/dL (70-105); Potassium 4.4 mmol/L (3.5-5.1); Sodium 136 mmol/L (136-145)
[2017-11-20] MEDS: Carvedilol 25 MG TAB PO SCH ×2 (06:10→14:33)
[2017-11-20] MEDS: Benzonatate 100 MG CAP PO SCH ×3 (09:00→20:53)
[2017-11-20] MEDS: Folic Acid/Vit B Comp W-C PO SCH (09:00)
[2017-11-20] MEDS: Amiodarone 200 MG TAB PO SCH ×2 (09:00→20:53)
[2017-11-20] MEDS: Sevelamer Carbonate 800 MG TAB PO SCH ×3 (09:00→20:54)
[2017-11-20] MEDS: Allopurinol 100 MG TAB PO SCH (09:00)
--- NOTE | 2017-11-20 09:31 | PRG ---
DATE OF SERVICE: 11/20/2017 SUBJECTIVE: This is a 52-year-old gentleman being seen for end-stage renal disease. Patient denies any nausea, vomiting or chest pain. The patient tolerated dialysis. PHYSICAL EXAMINATION: GENERAL: Patient is awake, alert. VITAL SIGNS: Afebrile, pulse 95, breathing 16, blood pressure 151/80. OBJECTIVE: See above. Awake, alert, in no acute distress. GENERAL APPEARANCE AND MENTAL STATUS: Fair. HEAD/NECK: Normocephalic. Atraumatic. EYES: EOMI. No deformity. EARS: Clear. No ulcers. NOSE: Intact. No lesions. MOUTH: Clear. No discharge. THROAT: Clear. No exudate. LUNGS: Clear. No crackles. CARDIAC: S1, S2. No rub. ABDOMEN: Benign. BS+. GENITALIA/RECTUM: Perez absent. BACK/EXTREMITIES: Edema 0+ Ulcer- NEUROLOGICAL: Alert and motor intact. SKIN: Rash- Bruise- LYMPHATICS: Edema- Ulcer- LABORATORY DATA: Show hemoglobin 8.8. ASSESSMENT AND RECOMMENDATIONS: 1. Stage 6 chronic kidney disease, continue hemodialysis. 2. Hypertension. 3. Anemia, stable. 4. Medications based on glomerular filtration rate are appropriate.
[2017-11-20 14:51] VITALS: TEMP 98.4
[2017-11-20] MEDS ORDERED: CEFAZOLIN/Water 2 GM/20 ML SYRINGE ONE (15:27)
[2017-11-20] MEDS ORDERED: Lidocaine 1% (PF) 30 ML VIAL ONE ×2 (15:33→16:18)
[2017-11-20] MEDS ORDERED: Midazolam HCl 2 mg/2 ml Vial ONE (16:11)
[2017-11-20] MEDS ORDERED: Fentanyl 100 MCG/2 ML VIAL ONE (16:12)
[2017-11-20] MEDS: Terazosin HCl 1 MG CAP PO SCH (20:53)
[2017-11-20 20:54] VITALS: BP 153/85
[2017-11-20] MEDS ORDERED: Lisinopril 5 MG TAB PO SCH (21:00)
--- NOTE | 2017-11-20 23:44 | OP ---
DATE OF OPERATION: 11/20/2017 ICD LEAD REVISION REPORT REFERRING PHYSICIAN: Porfirio Solorzano M.D. REASON FOR PROCEDURE: Mr. Lyons is a 52-year-old man with prior history of congestive heart failu re, nonischemic cardiomyopathy who underwent biventricular ICD implantation last week and one day pos top to have an atrial lead macro-dislodgement. He is here for revision of his atrial lead and also, pocket revision had significant hematoma in the pocket noted. PROCEDURE: The patient received Versed and fentanyl for conscious sedation. Total sedation time was an hour. The procedure after prep and drape of the left subclavian ICD insertion site, subcutaneous lidocaine was used for analgesia. The old pocket was carefully opened up and the sutures were removed. The ol d pacemaker as well as the previous pace direct pouch was removed, but eventually that was discarded. The right atrial lead was freed up and with the help of a J-tip stylet, the right atrial lead was r epositioned. The right atrial lead was found to have adequate sensing and threshold as well as injury pattern as t his was an adequate fixation of the expandable coil. Fluoroscopy was throughout this procedure. Fol lowing that the right atrial lead was sutured in place. The preexisting pocket was revised removing all excess clot and further cautery was used for hemostasis. Following that, the atrial lead was stevan ttached to this device. The device was reimplanted and the new TYRX antibiotic pouch was used. Foll owing that, the wound was closed with 3 layers of Vicryl and Dermabond was also used for closing the wound. Prior to closure, we used D-Stat solution to enhance hemostasis. Pressure dressing was place d on the wound as well. At the end of case, the lead placement was verified fluoroscopically as well . CONCLUSION: 1. Successful revision/repositioning of the macro-dislodged right atrial lead. 2. Hematoma evacuation and pocket revision was performed. 3. Conscious sedation without complication noted with Versed and fentanyl. 4. No complication noted. PLAN: Routine postoperative care. Continue antibiotics.
--- NOTE | 2017-11-21 02:20 | DIS ---
DATE OF ADMISSION: 11/14/2017 DATE OF DISCHARGE: 11/20/2017 PRIMARY CARE PROVIDER: Kelby Ndiaye M.D. Please note that I dictated another discharge summary for this hospitalization on 11/17/2017. The karissa villela could not be discharged home that day. He is being discharged home on 11/20/2017. DISCHARGE DIAGNOSES: 1. Systolic cardiomyopathy. 2. Volume overload and pulmonary edema. 3. Acute respiratory failure with hypoxia. 4. Healthcare-associated pneumonia. 5. Dislocation of AICD lead. CONSULTATIONS DURING THIS HOSPITALIZATION: As dictated on discharge summary dated 11/17/2017. CONDITION OF PATIENT ON THE DAY OF DISCHARGE: Stable. I assessed Mr. Lyons on the day of dischar . He denies any chest pain, shortness of breath, fevers or chills. S1 and S2 are heard, regular. Lungs are clear to auscultation bilaterally. HOSPITAL COURSE: Mr. Lyons is a pleasant 52-year-old gentleman who was admitted to [facility] on 11/14/2017 for hypoxic respiratory failure, needing BiPAP support and possible pneumonia. On 11/14/2017, there was a code because he was hypotensive and bradycardic. He was seen by Cardiology, Pulmonology, and Electrophysiology services. He is known to have severe LV dysfuncti on, with an ejection fraction of 15-20%. He therefore had an AICD placed on 11/08/2017. However, on 11/17/2017, it was found that his AICD lead had dislodged. He was kept in the hospital over the wee kend and on 11/20/2017, he had the lead replaced. He has been cleared for discharge by Electrophysio logy Service. Nephrology Service also saw him during this hospitalization for maintenance dialysis as well as for v olume overload. DISCHARGE MEDICATIONS: He is advised to resume apixaban on the evening of 11/22/2017. Otherwise, th e list of medications as dictated on discharge summary dated 11/17/2017 remain the same. Many thanks for allowing me to participate in your patient's care. Please feel free to contact me wi th any questions or concerns. DISCHARGE DESTINATION: Home. TOTAL AMOUNT OF TIME SPENT COORDINATING THIS DISCHARGE: 31 minutes.
== END 2017-11-20 20:58 | disposition home or self-care (01) | DRG 226 ==
LOC: ERS 00:12 → CCU 01:14 → ERS 02:46 → 2NO 11-16 13:59
PROVIDERS: ADMIT Hospitalist; ATTEND Hospitalist
PROC: 5A1D70Z Performance of Urinary Filtration, Intermittent, Less than 6 Hours Per Day (ICD-10-PCS; 2017-11-14)
PROC: 5A09357 Assistance with Respiratory Ventilation, Less than 24 Consecutive Hours, Continuous Positive Airway Pressure (ICD-10-PCS; 2017-11-14)
PROC: 5A1D70Z Performance of Urinary Filtration, Intermittent, Less than 6 Hours Per Day (ICD-10-PCS; 2017-11-15)
PROC: 0JH609Z Insertion of Cardiac Resynchronization Defibrillator Pulse Generator into Chest Subcutaneous Tissue and Fascia, Open Approach (ICD-10-PCS; principal; 2017-11-16)
PROC: 02HK3KZ Insertion of Defibrillator Lead into Right Ventricle, Percutaneous Approach (ICD-10-PCS; 2017-11-16)
PROC: 02H63KZ Insertion of Defibrillator Lead into Right Atrium, Percutaneous Approach (ICD-10-PCS; 2017-11-16)
PROC: 5A1D70Z Performance of Urinary Filtration, Intermittent, Less than 6 Hours Per Day (ICD-10-PCS; 2017-11-17)
PROC: 02WA3MZ Revision of Cardiac Lead in Heart, Percutaneous Approach (ICD-10-PCS; 2017-11-20)
PROC: 0JWT0PZ Revision of Cardiac Rhythm Related Device in Trunk Subcutaneous Tissue and Fascia, Open Approach (ICD-10-PCS; 2017-11-20)
PROC: 5A1D70Z Performance of Urinary Filtration, Intermittent, Less than 6 Hours Per Day (ICD-10-PCS; 2017-11-20)
DX: I13.2 Hypertensive heart and chronic kidney disease with heart failure and with stage 5 chronic kidney disease, or end stage renal disease (principal); J18.9 Pneumonia, unspecified organism; J96.01 Acute respiratory failure with hypoxia; N18.6 End stage renal disease; I50.23 Acute on chronic systolic (congestive) heart failure; T82.120A Displacement of cardiac electrode, initial encounter; E44.0 Moderate protein-calorie malnutrition; E03.9 Hypothyroidism, unspecified; I48.91 Unspecified atrial fibrillation; E88.09 Other disorders of plasma-protein metabolism, not elsewhere classified; R00.1 Bradycardia, unspecified; I95.9 Hypotension, unspecified; M10.9 Gout, unspecified; N40.0 Benign prostatic hyperplasia without lower urinary tract symptoms; D63.1 Anemia in chronic kidney disease; I42.9 Cardiomyopathy, unspecified; Z68.24 Body mass index [BMI] 24.0-24.9, adult; Z99.2 Dependence on renal dialysis; Z79.01 Long term (current) use of anticoagulants; Z79.899 Other long term (current) drug therapy; Y83.8 Other surgical procedures as the cause of abnormal reaction of the patient, or of later complication, without mention of misadventure at the time of the procedure; Y92.239 Unspecified place in hospital as the place of occurrence of the external cause; Y95 Nosocomial condition
CPT/HCPCS: 33215; 33224; 33249; 36005; 36415; 71045; 75820; 80048; 80053; 80202; 82805; 84484; 85025; 87040; 90935; 92950; 93005; 93010; 93306; 93798; 94660; 96365; 99152; 99153; A4216; C1777; C1882; C1898; C1900; G0257; J0171; J0461; J2001; J2250; J2543; J3010; J3370; J3490; J7050; P9047

== ENCOUNTER 2017-12-20 17:59 | Inpatient (IN) | payer OTHER ==
[2017-12-20] MEDS ORDERED: Ondansetron HCl/PF 4 MG/2 ML Vial IVP PRN (21:38)
[2017-12-20] MEDS ORDERED: Acetaminophen 325 MG TAB PO PRN (21:38)
[2017-12-20] MEDS ORDERED: VANCOMYCIN IVPB PRN (22:22)
[2017-12-20] MEDS ORDERED: Vancomycin HCl 1.25 GM in Sodium Chloride 0.9% 250 ML 250 ML IVPB SCH (22:30)
[2017-12-21 00:44] VITALS: BMI 27.7
--- NOTE | 2017-12-21 01:30 | HP ---
CODE STATUS: FULL CODE. TIME OF EVALUATION: 7:45 p.m. PRIMARY CARE PHYSICIAN: Kelby Ndiaye M.D. CHIEF COMPLAINT: Worsening shortness of breath. HISTORY OF PRESENT ILLNESS: A 52-year-old male patient transferred from [place]. The patient c krystle to the hospital after having gradually worsening moderate shortness of breath and cough, the domingo ent reported that is a chronic problem for him, but for the past few days, has been getting worse, no clear triggers, no alleviating factors. Of note, the patient has a history of end-stage renal disea se on hemodialysis. He does not seem to be in fluid overload. No fever, no significant sputum produ ction. REVIEW OF SYSTEMS: Constitutional: No fever or chills or generalized weakness. Respiratory: Cough , no sputum production, patient had shortness of breath. Cardiovascular: No chest pain, palpitation s, shortness of breath. Gastrointestinal: No nausea, vomiting, diarrhea or abdominal pain. REFUGE MANAGER: N o dizziness, headache or feeling lightheaded. Genitourinary: No burning on urination. Extremities: No leg swelling. All other systems reviewed were negative except for the findings mentioned above. PAST MEDICAL HISTORY: Congestive heart failure, arrhythmia, atrial fibrillation, hypertension. PAST SURGICAL HISTORY: AV graft in the right forearm, pacemaker placement. PSYCHIATRIC HISTORY: No previous psychiatric history. SOCIAL HISTORY: No drugs. No smoking history. No alcohol use. FAMILY HISTORY: Mother and father with cardiac problems, hypertension. ALLERGIES: No known drug allergy. REPORTED MEDICATIONS: Terazosin, levothyroxine, allopurinol. Other medications the patient does not recall well. PHYSICAL EXAMINATION: VITAL SIGNS: On presentation, blood pressure 121/85, heart rate 88, respiratory rate 26, temperature 98.1, and saturation was 98 on 2 liters oxygen. Room air saturations in the 80s to 90s. GENERAL APPEARANCE: Patient is alert, oriented, no acute distress. HEENT: Normocephalic, conjunctivae. Moist oral mucosa. Anicteric. NECK: No JVD. LUNGS: Bilateral air entry, rales mostly on the right side, no wheezing. Symmetrical expansion. CARDIOVASCULAR: Normal rate, regular rhythm. No murmurs, no gallop, no edema. ABDOMEN: Soft. Normal bowel sounds. MUSCULOSKELETAL: Baseline range of motion of the joint. No tenderness. SKIN: Warm and intact. No pallor, no rash, no redness. NEUROLOGIC: Baseline sensorium. No evidence of any new focal weakness. Baseline speech. Cranial n erves, sensory intact. PSYCHIATRIC: The patient is in a good mood. No anxiety, oriented, optimal judgment. EKG: EKG as discussed with performing physician showed biventricular pacemaker, no evidence of any a cute ischemic event. IMAGING: Chest x-ray was reviewed. The patient had cardiomegaly, interstitial alveolar opacities, p resumed to be due to pneumonia, superimposed congestive heart failure cannot be excluded. Continued surveillance is recommended. LABORATORY DATA: Reviewed. White count 6.7, hemoglobin 9.1, MCV 85, platelet count 235. Coagulatio n was done was normal. Chemistry was reviewed. Sodium 139, potassium 3.5, chloride 95, carbon dioxi de 29, anion gap 19, BUN 19, creatinine 5.4, GFR 13, glucose 101, calcium 9.1. Troponin mildly eleva elvis at 0.050. Beta natriuretic peptide 3769. ASSESSMENT AND PLAN: The patient will be placed in the hospital with following medical problems. 1. Possible pneumonia seen on chest x-ray, patient had worsening cough, patient has recent admission to the hospital for the same reason, patient has end-stage renal disease on hemodialysis, possibilit y for resistant organism/MRSA, broad spectrum antibiotics to be started, we will adjust depending on culture results. Patient has also underlying acute hypoxic respiratory failure, needing oxygen, he d oes not seem to be in fluid overload. We will adjust treatment depending on culture result. 2. End-stage renal disease, on hemodialysis, the patient to follow up with Dr. Andrew, has been con sulted and will follow recommendations. 3. Chronic normocytic anemia, is likely secondary to end-stage renal disease. Hemoglobin is better today. We will defer to Dr. Andrew any further treatment. 4. Acute hypoxic respiratory failure. The patient desaturation of 88, patient does not use ox ygen at home. He does not seem to be in fluid overload, congestive heart failure at this point and d oes not seem to be the main problem. We will reconcile home medications. The patient seems to have appropriate fluid balance. 5. Mildly elevated troponin of 0.05, recent admission it was higher. Likely we will trend tro ponins, we will treat accordingly, unlikely to be acute coronary syndrome. 6. Hypothyroidism, continue hormone replacement. 7. Deep venous thrombosis prophylaxis. 8. History of gout, reconcile home medications. 9. History of atrial fibrillation. In the examination, heart rate was controlled. We will reconcil e home medications. We will adjust treatment as needed. This is problem is chronic, he seems to be stable at this point.
[2017-12-21] MEDS ORDERED: Vancomycin HCl 500 MG in Sodium Chloride 0.9% 100 ML IVPB SCH (02:30)
[2017-12-21] MEDS ORDERED: Vancomycin HCl 750 MG in Sodium Chloride 0.9% 250 ML 250 ML IVPB SCH (02:30)
[2017-12-21] MEDS ORDERED: Vancomycin HCl 1 GM in Premix Bag 1 BAG IVPB SCH (02:30)
[2017-12-21] MEDS ORDERED: HOLD VANCOMYCIN FOR LEVEL >20 FS SCH (02:30)
[2017-12-21] MEDS ORDERED: Vancomycin HCl 1.25 GM in Sodium Chloride 0.9% 250 ML 250 ML IVPB SCH (02:30)
[2017-12-21 04:36] LABS: #Eosinphils 0.2 thou/uL (0.0-0.7); #Lymphocytes 0.9 thou/uL (1.20-3.40); #Monocytes 0.6 thou/uL (0.11-0.59); %Basophils 0.7 % (0.0-1.0); %Eosinophils 3.2 % (0.0-10.0); %Lymphocytes 14.9 % (21.0-51.0); %Monocytes 10.4 % (0.0-10.0); %Neutrophils 70.8 % (42.0-75.0); Hemoglobin 8.6 g/dL (14.0-18.0); Mean Corpuscular HGB CONC 31.9 g/dL (32.0-36.0); Mean Platelet Volume 9.2 fL (7.4-10.4); Platelet Count 198 thou/uL (130-400); RBC Distribution Width 19.6 % (11.5-14.5); Red Blood Cell (RBC) Count 3.07 mill/uL (4.70-6.10); White Blood Cell (WBC) Count 5.7 thou/uL (4.8-10.8)
[2017-12-21 05:06] LABS: Anion Gap 14 mmol/L (10-20); BUN (Urea Nitrogen) 18 mg/dL (8.4-25.7); Calc. Creatinine Clearance 20 mL/min (70-130); Calcium 8.9 mg/dL (7.8-10.44); Carbon Dioxide 29 mmol/L (22-29); Chloride 98 mmol/L (98-107); Estimated GFR-MDRD 16; Glucose 114 mg/dL (70-105); Potassium 3.6 mmol/L (3.5-5.1); Sodium 137 mmol/L (136-145)
[2017-12-21] MEDS: Levothyroxine Sodium 25 MCG TAB PO SCH (05:27)
--- NOTE | 2017-12-21 06:55 | CON ---
DATE OF CONSULTATION: 12/20/2017 REASON FOR CONSULTATION: Dyspnea and end-stage renal disease. HISTORY OF PRESENT ILLNESS: This is a very pleasant 52-year-old gentleman who had dialysis today, pr esented to the hospital, sudden onset of shortness of breath. The patient denied no nausea, vomiting , or chest pain. PAST MEDICAL HISTORY: Significant for end-stage renal disease, hypertension, anemia, atrial fibrilla tion, cardioversion, congestive heart failure, pacemaker, gout, AV fistula, tunneled dialysis cathete r. SOCIAL HISTORY: No alcohol or drug use. FAMILY HISTORY: Negative for ESRD. ALLERGIES: Reviewed. HOME MEDICATIONS: Reviewed. PHYSICAL EXAMINATION: GENERAL: Patient is awake and alert. VITAL SIGNS: Afebrile, pulse 88, breathing 16, blood pressure 121/85. GENERAL APPEARANCE AND MENTAL STATUS: Fair. HEAD/NECK: Normocephalic. Atraumatic. EYES: EOMI. No deformity. EARS: Clear. No ulcers. NOSE: Intact. No lesions. MOUTH: Clear. No discharge. THROAT: Clear. No exudate. LUNGS: Clear. No crackles. CARDIAC: S1, S2. No rub. ABDOMEN: Benign. BS+. GENITALIA/RECTUM: Perez absent. BACK/EXTREMITIES: Edema 0+ Ulcer- NEUROLOGICAL: Alert and motor intact. SKIN: Rash- Bruise- LYMPHATICS: Edema- Ulcer- LABORATORY DATA: Potassium is 3.5. Hemoglobin is 9.1. ASSESSMENT AND RECOMMENDATIONS: 1. Stage 6 chronic kidney disease, plan hemodialysis urgently. 2. Congestive heart failure, plan dialysis. 3. Medications based on glomerular filtration rate are appropriate. 4. Anemia, stable.
[2017-12-21 08:18] LABS: CKMB 1.2 ng/mL (0-6.6)
[2017-12-21] MEDS: Cefepime 1 GM in Sodium Chloride 0.9% 100 ML IVPB SCH ×2 (08:34→20:06)
[2017-12-21] MEDS: Heparin 5,000 UNITS/ML VIAL SC SCH ×2 (08:34→14:21)
[2017-12-21] MEDS: Carvedilol 25 MG TAB PO SCH ×2 (08:34→16:59)
[2017-12-21] MEDS ORDERED: Amiodarone 200 MG TAB PO SCH (09:00)
[2017-12-21] MEDS ORDERED: Allopurinol 100 MG TAB PO SCH (09:00)
--- NOTE | 2017-12-21 11:45 | PRG ---
DATE OF SERVICE: 12/21/2017 SUBJECTIVE: This is a 52-year-old male being seen for end-stage renal disease. The patient denies n ausea, vomiting or chest pain. PHYSICAL EXAMINATION: GENERAL: Patient is awake, alert. VITAL SIGNS: Afebrile, pulse 75, breathing 16, blood pressure 135/85. OBJECTIVE: See above. Awake, alert, in no acute distress. GENERAL APPEARANCE AND MENTAL STATUS: Fair. HEAD/NECK: Normocephalic. Atraumatic. EYES: EOMI. No deformity. EARS: Clear. No ulcers. NOSE: Intact. No lesions. MOUTH: Clear. No discharge. THROAT: Clear. No exudate. LUNGS: Clear. No crackles. CARDIAC: S1, S2. No rub. ABDOMEN: Benign. BS+. GENITALIA/RECTUM: Perez absent. BACK/EXTREMITIES: Edema 0+ Ulcer- NEUROLOGICAL: Alert and motor intact. SKIN: Rash- Bruise- LYMPHATICS: Edema- Ulcer- LABORATORY DATA: Hemoglobin 8.6.. ASSESSMENT AND RECOMMENDATIONS: 1. Stage 6 chronic kidney disease. Continue hemodialysis Monday, Monday, Monday. 2. Hypertension, stable. 3. Anemia, stable. 4. Congestive heart failure, lower the patient's dry weight.
--- NOTE | 2017-12-21 15:01 | PDOC.PN ---
- Subjective Encounter Start Date: 12/21/17 Encounter Start Time: 15:00 Subjective: feels much better. not needing supplemental O2 -: no chest pain/SOB -: HD last night w 3 L fluid removal - Objective MAR Reviewed: Yes Vital Signs & Weight: Vital Signs (12 hours) Temp Pulse Resp BP BP Pulse Ox 12/21/17 12:01 97.5 F L 73 22 H 128/76 93 L 12/21/17 08:34 98.1 F 75 22 H 92 L 12/21/17 08:12 98.1 F 75 22 H 137/85 92 L 12/21/17 03:56 98.2 F 74 20 109/69 96 Weight Weight 150 lb I&O: 12/20/17 12/21/17 12/22/17 06:59 06:59 06:59 Intake Total 700 Balance 700 Result Diagrams: 12/21/17 03:39 12/21/17 03:39 Additional Labs: Laboratory Tests 12/20/17 15:28 B-Natriuretic Peptide 3769.4 H labs reviewed Phys Exam - Physical Examination Constitutional: NAD HEENT: PERRLA, moist MMs, sclera anicteric, oral pharynx no lesions Neck: no nodes, no JVD, supple, full ROM Respiratory: no wheezing, no rales, no rhonchi, clear to auscultation bilateral Cardiovascular: RRR, no significant murmur, no rub Gastrointestinal: soft, non-tender, no distention, positive bowel sounds Musculoskeletal: no edema, pulses present Neurological: non-focal, normal sensation, moves all 4 limbs Psychiatric: normal affect, A&O x 3 Skin: no rash Dx/Plan (1) Acute respiratory failure with hypoxia Code(s): J96.01 - ACUTE RESPIRATORY FAILURE WITH HYPOXIA Status: Acute Comment: Improved, maintaining good saO2 on room air (2) Acute systolic CHF (congestive heart failure) Code(s): I50.21 - ACUTE SYSTOLIC (CONGESTIVE) HEART FAILURE Status: Acute (3) Healthcare-associated pneumonia Code(s): J18.9 - PNEUMONIA, UNSPECIFIED ORGANISM Status: Suspected Comment: suspected (4) Cardiomyopathy Code(s): I42.9 - CARDIOMYOPATHY, UNSPECIFIED Status: Chronic Comment: EF with 20-25% (5) Volume overload Code(s): E87.70 - FLUID OVERLOAD, UNSPECIFIED Status: Resolved (6) HTN (hypertension) Code(s): I10 - ESSENTIAL (PRIMARY) HYPERTENSION Status: Chronic Qualifiers: Comment: controlled (7) Normocytic anemia Code(s): D64.9 - ANEMIA, UNSPECIFIED Status: Chronic Comment: Stable, no evidence of acute blood loss (8) ESRD (end stage renal disease) on dialysis Code(s): N18.6 - END STAGE RENAL DISEASE; Z99.2 - DEPENDENCE ON RENAL DIALYSIS Status: Resolved Comment: nephrology service following (9) Chronic atrial fibrillation Code(s): I48.2 - CHRONIC ATRIAL FIBRILLATION Status: Chronic - Plan PT/OT, respiratory therapy, incentive spirometry, out of bed/ambulate, DVT proph w/heparin, DVT proph w/SCDs cont fluid removal as tolerated -: doubt PNA.empiric ABx.follow Cx results -: home meds as below -: HD stable. -: am labs * . Review of Systems - Review of Systems Constitutional: negative: fever, chills, sweats, weakness, malaise, other ENT: negative: Ear Pain, Ear Discharge, Nose Pain, Nose Discharge, Nose Congestion, Mouth Pain, Mouth Swelling, Throat Pain, Throat Swelling, Other Respiratory: negative: Cough, Dry, Shortness of Breath, Hemoptysis, SOB with Excertion, Pleuritic Pain, Sputum, Wheezing Cardiovascular: negative: chest pain, palpitations, orthopnea, paroxysmal nocturnal dyspnea, edema, light headedness, other Gastrointestinal: negative: Nausea, Vomiting, Abdominal Pain, Diarrhea, Constipation, Melena, Hematochezia, Other Genitourinary: negative: Dysuria, Frequency, Incontinence, Hematuria, Retention , Other Musculoskeletal: negative: Neck Pain, Shoulder Pain, Arm Pain, Back Pain, Hand Pain, Leg Pain, Foot Pain, Other Skin: negative: Rash, Lesions, Carlos, Bruising, Other Neurological: negative: Weakness, Numbness, Incoordination, Change in Speech, Confusion, Seizures, Other - Medications/Allergies Allergies/Adverse Reactions: Allergies Allergy/AdvReac Type Severity Reaction Status Date / Time No Known Drug Allergies Allergy Verified 11/14/17 03:18 Medications: Current Medications Acetaminophen (Tylenol) 650 mg PO Q4H PRN PRN Reason: Headache/Fever or Pain Allopurinol (Zyloprim) 100 mg PO DAILY [facility] Last Admin: 12/21/17 08:34 Dose: 100 mg Amiodarone HCl (Cordarone) 200 mg PO BID [facility] Last Admin: 12/21/17 08:34 Dose: 200 mg Carvedilol (Coreg) 12.5 mg PO BID[facility] Last Admin: 12/21/17 08:34 Dose: 12.5 mg Heparin Sodium (Porcine) (Heparin) 5,000 units SC TID [facility] Last Admin: 12/21/17 14:21 Dose: 5,000 units Cefepime HCl 1 gm/ Sodium (Chloride) 100 mls @ 200 mls/hr IVPB Q12HR [facility] Last Admin: 12/21/17 08:34 Dose: 100 mls Vancomycin HCl 1.25 gm/ Sodium (Chloride) 250 mls @ 166.667 mls/hr IVPB [facility] Vancomycin HCl 1 gm/ Device 200 mls @ 200 mls/hr IVPB [facility] Vancomycin HCl 750 mg/ Sodium (Chloride) 250 mls @ 250 mls/hr IVPB [facility] Vancomycin HCl 500 mg/ Sodium (Chloride) 100 mls @ 100 mls/hr IVPB [facility] Levothyroxine Sodium (Synthroid) 25 mcg PO 0600 [facility] Last Admin: 12/21/17 05:27 Dose: 25 mcg Miscellaneous Medication (Pharmacy To Dose) 1 each IVPB PRN PRN PRN Reason: PNA Hold Vancomycin For (Level >20) 0 each FS .AT DIALYSIS [facility] Ondansetron HCl (Zofran) 4 mg IVP Q6H PRN PRN Reason: Nausea/Vomiting
[2017-12-21] MEDS ORDERED: Benzonatate 100 MG CAP PO PRN (15:06)
[2017-12-21] MEDS ORDERED: Ondansetron ODT 4 MG TAB PO PRN (15:06)
[2017-12-21] MEDS ORDERED: Apixaban 5 MG TAB PO SCH (15:30)
[2017-12-21] MEDS: Lisinopril 5 MG TAB PO SCH (20:06)
[2017-12-21] MEDS: Terazosin HCl 1 MG CAP PO SCH (20:06)
[2017-12-22] MEDS: Levothyroxine Sodium 25 MCG TAB PO SCH (06:09)
[2017-12-22] MEDS ORDERED: Amiodarone 200 MG TAB PO SCH (09:00)
[2017-12-22] MEDS ORDERED: Allopurinol 100 MG TAB PO SCH (09:00)
[2017-12-22] MEDS ORDERED: Sucroferric Oxyhydroxide [Velphoro] 500 MG PO SCH (09:00)
[2017-12-22] MEDS: Apixaban 5 MG TAB PO SCH ×2 (09:58→20:04)
[2017-12-22] MEDS: Lisinopril 5 MG TAB PO SCH ×2 (09:59→20:04)
[2017-12-22] MEDS: Carvedilol 25 MG TAB PO SCH ×2 (09:59→18:07)
[2017-12-22] MEDS: Cefepime 1 GM in Sodium Chloride 0.9% 100 ML IVPB SCH ×2 (10:00→20:04)
--- NOTE | 2017-12-22 14:56 | PDOC.PN ---
- Subjective Encounter Start Date: 12/22/17 Encounter Start Time: 14:55 Subjective: feels good . -: no CP/SOB/RIVERA/cough/fever/chills - Objective MAR Reviewed: Yes Vital Signs & Weight: Vital Signs (12 hours) Temp Pulse Resp BP BP Pulse Ox 12/22/17 09:59 69 140/75 12/22/17 07:51 97.5 F L 69 16 140/75 100 Weight Weight 150 lb I&O: 12/21/17 12/22/17 12/23/17 06:59 06:59 06:59 Intake Total 700 580 Balance 700 580 Result Diagrams: 12/21/17 03:39 12/21/17 03:39 Additional Labs: Microbiology 12/20/17 15:28 Venous blood - Left Arm Blood Culture - Preliminary NO GROWTH AT 48 HOURS 12/20/17 15:25 Venous blood - Left Hand Blood Culture - Preliminary NO GROWTH AT 48 HOURS Phys Exam - Physical Examination Constitutional: NAD HEENT: PERRLA, moist MMs, sclera anicteric, oral pharynx no lesions Neck: no nodes, no JVD, supple, full ROM Respiratory: no wheezing, no rales, no rhonchi, clear to auscultation bilateral Cardiovascular: RRR, no significant murmur, no rub Gastrointestinal: soft, non-tender, no distention, positive bowel sounds Musculoskeletal: no edema, pulses present Neurological: non-focal, normal sensation, moves all 4 limbs Psychiatric: normal affect, A&O x 3 Skin: no rash Dx/Plan (1) Acute respiratory failure with hypoxia Code(s): J96.01 - ACUTE RESPIRATORY FAILURE WITH HYPOXIA Status: Resolved Comment: Improved, maintaining good saO2 on room air (2) Acute systolic CHF (congestive heart failure) Code(s): I50.21 - ACUTE SYSTOLIC (CONGESTIVE) HEART FAILURE Status: Acute (3) Healthcare-associated pneumonia Code(s): J18.9 - PNEUMONIA, UNSPECIFIED ORGANISM Status: Suspected Comment: suspected (4) Cardiomyopathy Code(s): I42.9 - CARDIOMYOPATHY, UNSPECIFIED Status: Chronic Comment: EF with 20-25% (5) Volume overload Code(s): E87.70 - FLUID OVERLOAD, UNSPECIFIED Status: Resolved (6) HTN (hypertension) Code(s): I10 - ESSENTIAL (PRIMARY) HYPERTENSION Status: Chronic Qualifiers: Comment: controlled (7) Normocytic anemia Code(s): D64.9 - ANEMIA, UNSPECIFIED Status: Chronic Comment: Stable, no evidence of acute blood loss (8) ESRD (end stage renal disease) on dialysis Code(s): N18.6 - END STAGE RENAL DISEASE; Z99.2 - DEPENDENCE ON RENAL DIALYSIS Status: Resolved Comment: nephrology service following (9) Chronic atrial fibrillation Code(s): I48.2 - CHRONIC ATRIAL FIBRILLATION Status: Chronic - Plan continue antibiotics, respiratory therapy, incentive spirometry, out of bed/ ambulate, DVT proph w/SCDs clinically better.[email or web address] Fluid overload -: cont HD w fluid removal as tolerated -: cont empiric ABx -: cont home meds as below -: Home in am if stable.am labs * . Review of Systems - Review of Systems Constitutional: negative: fever, chills, sweats, weakness, malaise, other Respiratory: negative: Cough, Dry, Shortness of Breath, Hemoptysis, SOB with Excertion, Pleuritic Pain, Sputum, Wheezing Cardiovascular: negative: chest pain, palpitations, orthopnea, paroxysmal nocturnal dyspnea, edema, light headedness, other Gastrointestinal: negative: Nausea, Vomiting, Abdominal Pain, Diarrhea, Constipation, Melena, Hematochezia, Other Genitourinary: negative: Dysuria, Frequency, Incontinence, Hematuria, Retention , Other Musculoskeletal: negative: Neck Pain, Shoulder Pain, Arm Pain, Back Pain, Hand Pain, Leg Pain, Foot Pain, Other Neurological: negative: Weakness, Numbness, Incoordination, Change in Speech, Confusion, Seizures, Other - Medications/Allergies Allergies/Adverse Reactions: Allergies Allergy/AdvReac Type Severity Reaction Status Date / Time No Known Drug Allergies Allergy Verified 11/14/17 03:18 Medications: Current Medications Acetaminophen (Tylenol) 650 mg PO Q4H PRN PRN Reason: Headache/Fever or Pain Allopurinol (Zyloprim) 100 mg PO DAILY [facility] Last Admin: 12/22/17 09:58 Dose: 100 mg Amiodarone HCl (Cordarone) 200 mg PO DAILY [facility] Last Admin: 12/22/17 09:58 Dose: 200 mg Apixaban (Eliquis) 5 mg PO BID [facility] Last Admin: 12/22/17 09:58 Dose: 5 mg Benzonatate (Tessalon) 100 mg PO TID PRN PRN Reason: Cough Carvedilol (Coreg) 12.5 mg PO BID[facility] Last Admin: 12/22/17 09:59 Dose: Not Given Cefepime HCl 1 gm/ Sodium (Chloride) 100 mls @ 200 mls/hr IVPB Q12HR [facility] Last Admin: 12/22/17 10:00 Dose: 100 mls Vancomycin HCl 1.25 gm/ Sodium (Chloride) 250 mls @ 166.667 mls/hr IVPB WILLCALL [facility] Vancomycin HCl 1 gm/ Device 200 mls @ 200 mls/hr IVPB WILLCALL [facility] Vancomycin HCl 750 mg/ Sodium (Chloride) 250 mls @ 250 mls/hr IVPB WILLCALL [facility] Vancomycin HCl 500 mg/ Sodium (Chloride) 100 mls @ 100 mls/hr IVPB WILLCALL [facility] Levothyroxine Sodium (Synthroid) 25 mcg PO 0600 [facility] Last Admin: 12/22/17 06:09 Dose: 25 mcg Lisinopril (Zestril) 5 mg PO BID [facility] Last Admin: 12/22/17 09:59 Dose: Not Given Miscellaneous Medication (Pharmacy To Dose) 1 each IVPB PRN PRN PRN Reason: PNA Hold Vancomycin For (Level >20) 0 each FS .AT DIALYSIS [facility] Ondansetron HCl (Zofran) 4 mg IVP Q6H PRN PRN Reason: Nausea/Vomiting Ondansetron HCl (Zofran Odt) 4 mg PO TID PRN PRN Reason: nausea/vomiting Sucroferric Oxyhydroxide [ Velphoro] 500 Mg 0 each PO DAILY [facility] Terazosin HCl (Hytrin) 2 mg PO HS [facility] Last Admin: 12/21/17 20:06 Dose: 2 mg
[2017-12-22 15:02] LABS: HBSAg Index 0.28 S/CO (0-0.99); Hep B Surf Ag Non-Reactive S/CO (NonReactive)
[2017-12-22 16:06] LABS: Vancomycin, Trough 17.9 ug/mL
--- NOTE | 2017-12-22 17:55 | PRG ---
DATE OF SERVICE: 12/22/2017 SUBJECTIVE: This is a 60-year-old gentleman being seen for end-stage renal disease. Patient denies any nausea, vomiting or chest pain. PHYSICAL EXAMINATION: GENERAL: Patient is awake, alert. VITAL SIGNS: Afebrile, pulse 69, breathing 16, blood pressure 140/75. HEAD/NECK: Normocephalic. Atraumatic. EYES: EOMI. No deformity. EARS: Clear. No ulcers. NOSE: Intact. No lesions. MOUTH: Clear. No discharge. THROAT: Clear. No exudate. LUNGS: Clear. No crackles. CARDIAC: S1, S2. No rub. ABDOMEN: Benign. BS+. GENITALIA/RECTUM: Perez absent. BACK/EXTREMITIES: Edema 0+ Ulcer- NEUROLOGICAL: Alert and motor intact. SKIN: Rash- Bruise- LYMPHATICS: Edema- Ulcer- LABORATORY DATA: Show hemoglobin 8.6, potassium 3.6. ASSESSMENT AND RECOMMENDATIONS: 1. Stage 6 chronic kidney disease, plan hemodialysis. 2. Hypertension, stable. 3. Anemia, stable. 4. Medications based on glomerular filtration rate are appropriate.
[2017-12-22 19:39] VITALS: BP 163/86; TEMP 98.2
[2017-12-22] MEDS: Terazosin HCl 1 MG CAP PO SCH (20:04)
--- NOTE | 2017-12-23 14:47 | DIS ---
DATE OF ADMISSION: 12/20/2017 DATE OF DISCHARGE: 12/22/2017 CONDITION AT THE TIME OF DISCHARGE: Stable and improved. PRIMARY CARE PHYSICIAN: Dr. Kelby Ndiaye. PRIMARY FIRE CONTROL OFFICER: Dr. Sudarshan Ontiveros. DISCHARGE DIAGNOSES: 1. Acute hypoxic respiratory failure secondary to fluid overload. 2. Acute congestive systolic heart failure. 3. Presumable healthcare associated pneumonia. No clear evidence to suggest the same. 4. History of cardiomyopathy with ejection fraction of 20%-25%, status post AICD. 5. Hypertension. 6. Volume overload. 7. End-stage renal disease, on hemodialysis. 8. Normochromic anemia. 9. Chronic atrial fibrillation on chronic anticoagulation. DISCHARGE MEDICATIONS: Remain the same as admission medication as follows; Velphoro 500 mg daily, El iquis 5 mg p.o. b.i.d., Zofran p.r.n., benzonatate p.r.n., Renvela 1600 t.i.d., terazosin 2 mg daily, lisinopril 5 mg p.o. b.i.d., levothyroxine 25 mcg daily, Coreg 12.5 mg p.o. b.i.d., amiodarone 200 m g, allopurinol 100 mg daily, and Augmentin 500/125 one tablet each for 5 more days. INHOUSE CONSULTATION: Nephrology, Dr. Ontiveros. PROCEDURES DONE IN THE HOSPITAL: Maintenance hemodialysis. HISTORY OF PRESENTING ILLNESS: Mr. Lyons is a very pleasant 52-year-old male with known history o f systolic congestive heart failure and cardiomyopathy, status post AICD placement as well as end-sta ge renal disease and atrial fibrillation, on anticoagulation, who presented to the emergency room com plaining of worsening shortness of breath. Upon presentation, BNP was elevated. There was some ques tion of pneumonia upon presentation, but he was recently admitted and discharged after being treated for pneumonia. He was given empiric antibiotics and Nephrology was consulted for emergent dialysis. He was hypoxic at the time of presentation with oxygen saturation of 80%-90% on room air. Please se e admission history and physical dictated by Dr. Solorzano for further detail. HOSPITAL COURSE: The patient underwent back to back hemodialysis with significant improvement in his symptoms. He was quickly weaned off of the oxygen and was back to baseline quickly. He was continu ed on IV antibiotics while he was here and was changed to oral Augmentin at the time of discharge. I do not believe that the patient presented here with the pneumonia. Most likely his chest x-ray find ings are the remnant of his recent pneumonia seen about 2 weeks ago. Nevertheless, he will finish e Augmentin as an outpatient and follow up with his primary care physician. He was seen and examined prior to discharge. Please see hospitalist progress note from the day of mary palmer for further detail. He is hemodynamically stable and eager to go home. Medications were rec onsulted. Discharge plan was discussed with the patient who verbalized understanding.
== END 2017-12-22 22:15 | disposition home or self-care (01) | DRG 291 ==
LOC: ERS 17:59 → T4-B 22:03
PROVIDERS: ADMIT Family Medicine; ATTEND Family Medicine
DX: I13.2 Hypertensive heart and chronic kidney disease with heart failure and with stage 5 chronic kidney disease, or end stage renal disease (principal); J18.9 Pneumonia, unspecified organism; N18.6 End stage renal disease; J96.01 Acute respiratory failure with hypoxia; I50.23 Acute on chronic systolic (congestive) heart failure; I42.9 Cardiomyopathy, unspecified; Z99.2 Dependence on renal dialysis; D63.1 Anemia in chronic kidney disease; E03.9 Hypothyroidism, unspecified; M10.9 Gout, unspecified; I48.2 Chronic atrial fibrillation; Z79.01 Long term (current) use of anticoagulants; Y95 Nosocomial condition
CPT/HCPCS: 36415; 80048; 80202; 82553; 83880; 84484; 85025; 87340; 93005; J0692; J1644; J3370; J7050

== ENCOUNTER 2018-01-21 21:01 | Inpatient (IN) | payer MEDICARE ==
--- NOTE | 2018-01-21 22:34 | RAD ---
RADIOGRAPH CHEST 1 VIEW: HISTORY: 52-year-old male with cough and hypotension. FINDINGS: There is severe cardiomegaly. There is no evidence of air space density, pulmonary edema, or pneumoth orax. The lateral costophrenic angles are sharp. There is a triple lead left subclavian AICD. No pulm onary venous engorgement. IMPRESSION: 1) No acute pulmonary findings. 2) Severe cardiomegaly without congestive heart failure. 3) Automatic implantable cardioverter/defibrillator. anupama POS: AMILCAR
[2018-01-21 22:48] LABS: Troponin I 0.021 ng/mL (< 0.028)
[2018-01-21] MEDS ORDERED: Ondansetron HCl/PF 4 MG/2 ML Vial IVP PRN (23:43)
[2018-01-21] MEDS ORDERED: Acetaminophen 325 MG TAB PO PRN (23:43)
[2018-01-22 01:06] VITALS: BMI 23.9
[2018-01-22 01:29] LABS: Troponin I 0.018 ng/mL (< 0.028)
[2018-01-22] MEDS ORDERED: Ondansetron ODT 4 MG TAB PO PRN (02:03)
[2018-01-22] MEDS ORDERED: Sodium Chloride 0.9% 250 ML IV SCH (02:15)
[2018-01-22] MEDS ORDERED: Sodium Chloride 0.9% 250 ML 250 ML IVPB SCH (02:15)
[2018-01-22] MEDS ORDERED: Sodium Chloride 0.9% 250 ML IVPB SCH (02:30)
[2018-01-22] MEDS ORDERED: cefTRIAXone\\ROCEPHIN 1 GM in Sodium Chloride 0.9% 100 ML IVPB SCH (03:00)
[2018-01-22 03:29] VITALS: BP 70/47
[2018-01-22] MEDS ORDERED: Vancomycin HCl 750 MG in Sodium Chloride 0.9% 250 ML 250 ML IVPB SCH (04:00)
[2018-01-22] MEDS ORDERED: HOLD VANCOMYCIN FOR LEVEL >20 FS SCH (04:00)
[2018-01-22] MEDS ORDERED: Vancomycin HCl 500 MG in Sodium Chloride 0.9% 100 ML IVPB SCH (04:00)
[2018-01-22] MEDS ORDERED: Vancomycin HCl 1 GM in Premix Bag 1 BAG IVPB SCH (04:00)
[2018-01-22] MEDS ORDERED: Vancomycin HCl 1.25 GM in Sodium Chloride 0.9% 250 ML 250 ML IVPB SCH (04:00)
[2018-01-22 04:30] LABS: Troponin I Less than 0.010 ng/mL (< 0.028)
[2018-01-22 04:32] LABS: Anion Gap 27 mmol/L (10-20); BUN (Urea Nitrogen) 62 mg/dL (8.4-25.7); Calc. Creatinine Clearance 9 mL/min (70-130); Calcium 8.7 mg/dL (7.8-10.44); Carbon Dioxide 17 mmol/L (22-29); Chloride 96 mmol/L (98-107); Estimated GFR-MDRD 6; Glucose 92 mg/dL (70-105); Potassium 5.3 mmol/L (3.5-5.1); Sodium 135 mmol/L (136-145)
[2018-01-22] MEDS ORDERED: Norepinephrine 8 MG/250 ML BAG IVPB PRN (04:40)
--- NOTE | 2018-01-22 04:40 | PDOC.EVN ---
Event Note - Event Note Event Note: BP has remained very low, not improving, lactic acid is high, we will cover with antibiotics place in icu and place in vasopressors, will cosult icu for assistance with our pt, will follow cultures to adjust treatment.
[2018-01-22] MEDS ORDERED: Piperacillin/Tazobactam 2.25 GM in Sodium Chloride 0.9% 100 ML IVPB SCH (05:00)
--- NOTE | 2018-01-22 05:35 | HP ---
PRIMARY CARE PHYSICIAN: Dr. Ndiaye. CODE STATUS: FULL CODE. TIME OF EVALUATION: 11:20 p.m. CHIEF COMPLAINT: Feeling lightheaded. HISTORY OF PRESENT ILLNESS: This is a 52-year-old male patient with past medical history of congestive heart failure, arrhythmia, atrial fibrillation, hypertension, dialysis, gout and history of pneumonia, came to the hospital after having an episode of feeling lightheaded. The patient reported that this has been going on for a few days, has been feeling weak, with no clear triggers , no alleviating factors. The patient was found to be with a blood pressure on the low side. He reported that this has been going on for the past few days. The symptoms are not improved, constant. He has had all days dialysis on Monday , Monday, and Monday. No fever on presentation. No shortness of breath. X- ray was negative. Heart rate was normal. Saturation was normal. REVIEW OF SYSTEMS: Constitutional: No fever, chills, or generalized weakness. Respiratory: No cough, sputum production or shortness of breath. Cardiovascular: No chest pain, palpitation or shortness of breath. Gastrointestinal: No nausea, no vomiting, no diarrhea or abdominal pain. MARINE DRILLER: The patient has reported feeling lightheaded and dizzy, no headache. Genitourinary: No burning on urination. Extremities: No leg swelling. All other systems were reviewed and negative except for the findings mentioned above. PAST MEDICAL HISTORY: As mentioned in HPI. PAST SURGICAL HISTORY: Hemodialysis graft on the right forearm, cardioversion, pacemaker placement. PSYCHIATRIC HISTORY: No previous psychiatric history. SOCIAL HISTORY: No alcohol, no drug use, no smoking history. REPORTS MEDICATION: Terazosin, allopurinol, carvedilol, amiodarone, Eliquis, Synthroid, loratadine. PHYSICAL EXAMINATION: VITAL SIGNS: On presentation, blood pressure 86/57, heart rate 78, respiratory rate was 16, temperature 97.9, oxygen saturation 100. The patient has received some fluids with improvement in the blood pressure, taken manually low with no significant change in mental status. GENERAL APPEARANCE: The patient is alert and oriented, not in any acute distress. HEENT: Eyes: Normal conjunctivae. Moist oral mucosa. Anicteric. NECK: No JVD. RESPIRATORY: Bilateral air entry. No rales, no wheezing. Symmetric expansion. CARDIOVASCULAR: Normal rate, regular rhythm. No murmurs, no gallop. No edema. ABDOMEN: Soft. Normal bowel sounds. MUSCULOSKELETAL: Baseline range of motion and strength. No tenderness. SKIN: Warm and intact. No pallor, no rash, no redness. Peripheral pulses are present. Capillary refill seems to be intact. NEUROLOGIC: Baseline sensory. No evidence of any new focal weakness. Baseline speech. Cranial nerves seem to be intact. PSYCHIATRIC: The patient is in good mood. No anxiety, oriented, optimal judgment. IMAGING DATA: EKG was reviewed. The patient had paced rhythm at the rate of 71 with MO 152, QRS 170. Chest x-ray was reviewed. The patient has no acute pulmonary findings, severe cardiomegaly without congestive heart failure, traumatic implantable cardioverter defibrillator. LABORATORY DATA: Labs were reviewed. Troponin was negative x2. Hemoglobin 8.4 , on previous admission it was 8.6; MCV 83; platelet count 243; white count 4.4. Coagulation: INR 3.4, the patient is on Eliquis. Chemistry was reviewed. The patient has serum potassium 4.2, sodium 137, potassium 5.1, carbon dioxide 21, anion gap 28, BUN 58, creatinine 9.9, GFR 7, glucose 106. LFTs were negative. ASSESSMENT AND PLAN: The patient will be placed in the hospital with following medical problems: 1. The patient is feeling dizzy and lightheaded, associated with hypotension, there is no clear etiology for the hypotension. The patient seems to be in the dry side. We have given fluids with recovery of the blood pressure; however, blood pressure has been remained in the 70s and 80s. We will give another small bolus with caution as the patient is a renal patient, we will do UA, that is pending. The patient has a urinary tract infection in the past. Treat empirically with Rocephin for now although infectious etiology at this point does not seem to be the most likely diagnosis. Findings on physical examination and chart review points more to dehydration. The patient has no change in mental status at all. He feels comfortable. He does have some feelings of feeling lightheaded when he stands up. 2. End-stage renal disease on hemodialysis. We will consult Nephrology for assistance with this case. The patient followed with Dr. Andrew. 3. History of hypertension. We will not restart blood pressure medication at this point due to hypotension. This will need to be addressed in the future. 4. History of gout, we will reconcile home medications. This problem is chronic, seems to be stable. 5. History of atrial fibrillation. The patient will continue for now. 6. Hypothyroidism. We will reconcile home medications. Continue levothyroxine. 8. Deep venous thrombosis prophylaxis. MTDD
[2018-01-22] MEDS ORDERED: Levothyroxine Sodium 25 MCG TAB PO SCH (06:00)
[2018-01-22 06:04] VITALS: TEMP 96.8
[2018-01-22 06:05] LABS: Anisocytosis MODERATE=16-30 cells (100X) (0-5/hpf); Band 3 % (5-11); Hemoglobin 8.2 g/dL (14.0-18.0); Lymphocytes 21 % (21-51); MDiff Complete? YES; Mean Corpuscular HGB CONC 31.2 g/dL (32.0-36.0); Mean Corpuscular Hemoglobin 26.9 pg (27.0-31.0); Mean Corpuscular Volume 86.2 fL (78.0-98.0); Mean Platelet Volume 9.1 fL (7.4-10.4); Monocytes 7 % (0-10); Neutrophil 69 % (42-75); Nucleated RBC 4 % (0); PLT Morphology Comment Appears Adequate; Platelet Count 238 thou/uL (130-400); Polychromasia SLIGHT = 2-3 cells (100X) (0-2/hpf); Red Blood Cell (RBC) Count 3.06 mill/uL (4.70-6.10); White Blood Cell (WBC) Count 4.7 thou/uL (4.8-10.8)
--- NOTE | 2018-01-22 07:46 | PDOC.EVN ---
Event Note - Event Note Event Note: DEVON CORDERO called approximately 0715, please see code record for full details. In short, pt admitted with ESRD, lactic acidosis, and hypoTN. Residents were called for placement of CVC for vasopressor support. Femoral vein was successfully cannulated but pt jerked leg. Needle withdrawn and attempt to administer more local anesthetic made. Pt was noted to choke, respiratory distress, and pulse lost. Code blue initiated. Epi x3, bicarb x2, Ca x1 given. Stat rainbow labs ordered and obtained. Pt intubated via glidescope by Dr. Chávez with 7.5 ETT. Pt required 20 mg of etomidate for RSI due to biting down. VSS at this time, initiate mechanical ventilation. Primary team notified and at bedside. Pulmonology notified. Family called by nursing.
[2018-01-22 08:03] LABS: CO2 Tension 35.4 mmHg (35.0-45.0); O2 Tension (PaO2) 111.7 mmHg (80.0-100.0); pH, Arterial 7.32 (7.35-7.45)
--- NOTE | 2018-01-22 08:03 | PDOC.OP ---
Operative Note - Operative Note Operative Note: Femoral Central Line Procedure Note INDICATION: Hypotension requiring pressors, likely septic shock PROCEDURE WIRE SAW OPERATOR: Leena Chávez MD ATTENDING PHYSICIAN: Marco Jacome MD- In Attendance throughout the entire procedure Ultrasound Used: Y CONSENT: Consent was obtained from the patient prior to the procedure. Indications, risks , and benefits were explained at length. PROCEDURE SUMMARY: A time out was performed. My hands were washed immediately prior to the procedure. I wore a surgical cap, mask with protective eyewear, sterile gown and sterile gloves throughout the procedure. The RIGHT inguinal region was prepped using chlorhexidine scrub and draped in sterile fashion using a full sheet drape. The femoral pulse was identified. Anesthesia was achieved using 1% lidocaine. The femoral vein was visualized with ultrasound, the introducer needle was inserted Medial to the femoral artery, inferior to the inguinal crease and into the Femoral vein. Venous blood was withdrawn. The syringe was removed and a guidewire was advanced into the introducer needle. The patient this started shaking his leg around and the wire came out of the femoral vein. More lidocaine was then used to give the patient better anesthesia. The patient then started choking and stopped breathing. A code blue was called. His pulse was then lost. See the Code Blue summary for full code blue events. EBL: < 5mL Femoral Central Line placement unsuccessful due to patient having code blue during procedure.
[2018-01-22 08:04] LABS: Base Excess (BEa) -7.3 mEq/L (-2.0 to +3.0); Carboxyhemoglobin (COHb) 1.5 gm% (0.0-3.0); Hemoglobin (Hb) 8.3 g/dL (14.0-18.0); Potassium - ABG Lab 4.5 mmol/L (3.70-5.30)
[2018-01-22 08:05] LABS: Calcium, Ionized 1.15 mmol/L (1.12-1.30); Puncture Site LB
[2018-01-22] MEDS ORDERED: Propofol 1,000 MG/100 ML VIAL IV ONE (08:06)
--- NOTE | 2018-01-22 08:07 | PDOC.EVN ---
Event Note - Event Note Event Note: Endotracheal Intubation Procedure Note INDICATION: Encephalopathy, Inability to protect the airway, s/p ROSC, acute hypoxic respiratory failure PROCEDURE MANAGER INTEGRATION: Leena Chávez MD ATTENDING PHYSICIAN: Marco Jacome MD. In Attendance -yes CONSENT: Consent was not obtained due to patient's altered mental status and emergent nature of the procedure. PROCEDURE SUMMARY: A time out was performed. The patient was on a patient monitor including continuous pulse oximetry. Rapid Sequence Intubation was conducted. The patient received 20 mg of Etomidate for sedation. Using a Glidescope and a size 7.5 endotracheal tube with stylette, the patient was intubated on the 1st attempt. The stylette was removed and cuff balloon was inflated. Appropriate endotracheal tube position was confirmed by direct visualization of vocal cord passage, fogging of the tube, CO2 colometric indicator and symmetric breath sounds. The tube was secured at 22 cm at the lips. Post intubation chest x-ray is pending at this time.
--- NOTE | 2018-01-22 08:14 | RAD ---
AP VIEW OF THE CHEST: INDICATION: ET tube placement. COMPARISON: Prior exam dated 01/21/18 at 10:15 p.m. FINDINGS: The patient is now intubated with associated gastric catheter placement. The gastric catheter projec ts in the region of the fundus. The ET tube is approximately 4 cm from the level of the wilder. The re are new perihilar airspace opacities, right greater than left. Prominent cardiomegaly persists. No definite pleural effusion or pneumothorax is evident. Multilead AICD is unchanged. IMPRESSION: 1. New perihilar opacities suspicious for edema. There is prominent cardiomegaly. No sen pleural effusion or pneumothorax is evident. 2. Interval intubation and gastric catheter placement. POS: RAFIA
[2018-01-22] MEDS ORDERED: Apixaban 5 MG TAB PO SCH (09:00)
[2018-01-22] MEDS ORDERED: Allopurinol 100 MG TAB PO SCH (09:00)
[2018-01-22] MEDS ORDERED: Amiodarone 200 MG TAB PO SCH (09:00)
[2018-01-22] MEDS ORDERED: Loratadine 10 MG TAB PO SCH (09:00)
--- NOTE | 2018-01-22 10:20 | CON ---
DATE OF CONSULTATION: 01/22/2018 This is a code blue note. This encompassed approximately 60 minutes of critical care time. HISTORY OF PRESENT ILLNESS: This patient had been admitted to the hospital earlier with hypotension, which was presumed to be due to sepsis. When I walked into the hospital this morning around 7:30, t he patient was being intubated by the Family Medicine service. Apparently, he coded while an attempt was made to put a central line in the right groin. He was intubated and placed on mechanical ventil ation. Shortly afterwards, I was called to see the patient. I reviewed his records quickly. I noti jose that his x-ray showed a cardiac size which was several times larger than his heart size during a previous admission. About that time, the patient coded again. I assume that he probably had a massi ve pericardial effusion. Patient was given chest compressions and bag, ET tube ventilation. He was given epinephrine at scheduled intervals. He would occasionally regain a pulse. Dr. Leonardo arrive d quickly. Echocardiogram showed a massive effusion. Dr. Leonardo performed a stat pericardiocentes is, which resulted at about 200 mL of bloody pericardial fluid. The echo showed many adhesions prese nt in the pericardial space, which I think prevented any significant evacuation. Despite aggressive efforts with continued chest compressions and epinephrine, the patient succumbed and was pronounced lilia orta, called at 09:06. Family was informed.
[2018-01-22] MEDS ORDERED: Sodium Bicarb 50 MEQ/50 ML Abboject 8.4% SYRINGE ONE (10:27)
[2018-01-22] MEDS ORDERED: Calcium Chloride 1 GM/10 ML Abboject SYRINGE ONE (10:27)
[2018-01-22] MEDS ORDERED: Atropine Sulfate 1 mg/10 ml Syringe ONE (10:27)
[2018-01-22] MEDS ORDERED: Lidocaine 2 gm/D5W 500ML PREMIX BAG ONE (10:27)
[2018-01-22] MEDS ORDERED: EPINEPHrine 1 MG/10 ML Abboject SYRINGE ONE (10:27)
--- NOTE | 2018-01-22 12:07 | ECHO ---
PERICARDIOCENTESIS: HISTORY: This is a 52-year-old gentleman with cardiac tamponade and a large pericardial effusion. DESCRIPTION OF PROCEDURE: The patient in the CCU was prepped and draped. A needle was placed into the pericardial space using the subxiphoid approach. Bloody pericardial fluid drained from the pericardial space with a catheter which was placed into the pericardium. Follow-up echocardiogram revealed reduced size of the pericardial effusion with catheter drainage. IMPRESSION: Successful pericardiocentesis. Cc: Dr. Mayo POS: AMILCAR TOMLIN
--- NOTE | 2018-01-22 13:46 | EKG ---
Test Reason : CODE BLUE #2 Blood Pressure : / mmHG Vent. Rate : 100 BPM Atrial Rate : 096 BPM P-R Int : 000 ms QRS Dur : 184 ms QT Int : 530 ms P-R-T Axes : 069 050 065 degrees QTc Int : 683 ms Poor data quality, interpretation may be adversely affected Electronic ventricular pacemaker Confirmed by DR. Karri DALEY ([id number]) on 01/22/2018 1:45:59 PM Referred By: DAVE Confirmed By:DR. Karri DALEY
--- NOTE | 2018-01-22 20:05 | DIS ---
PRIMARY CARE PROVIDER: Kelby Ndiaye M.D. DATE OF ADMISSION: 01/21/2018 DATE OF : 01/22/2018 HOSPITAL COURSE: Mr. Lyons is a 52-year-old gentleman, who was admitted to [facility] on 01/21/2018 for a probable septic shock. He was transferred here from emergency room a [facility]. He was admitted to the Critical Care Unit by Dr. Solorzano. Please refer Rashad's history and physical note dated 01/22/2018 for further details. Mr. Lyons continued to be hypotensive in the critical care unit. Femoral central line placement w as attempted, but was unsuccessful due to the patient having code blue during procedure. He was seen by Pulmonology and Cardiology Services. Please refer to code records. Patient had at least three c ode blue events. He was intubated during the first code blue. He was seen by Pulmonary and Critical Care Medicine and by Cardiology Services. Pericardial effusion was suspected. He had a bedside 2D echocardiogram, which showed a large circumferential pericardial effusion with tamponade physiology. He had a pericardiocentesis by Cardiology Service, with a needl e placed into the pericardial space using the subxiphoid approach. Echocardiogram revealed a markedl y reduced size of pericardial effusion. However, he continued to be unstable and at 9:06 a.m. o n 01/22/2018. Many thanks for allowing me to participate in your patient's care. Please feel free to contact me wi th any questions or concerns DISCHARGE DIAGNOSES: 1. Cardiogenic shock. 2. Pericardial effusion with cardiac tamponade physiology.
== END 2018-01-22 11:40 | disposition expired | DRG 871 ==
LOC: ERS 21:01 → 2SW 22:50 → CCU 01-22 05:00 → OBSVTOIN 01-22 06:21
PROVIDERS: ADMIT Hospitalist; ATTEND Hospitalist
PROC: 5A1935Z Respiratory Ventilation, Less than 24 Consecutive Hours (ICD-10-PCS; principal; 2018-01-22)
PROC: 0BH17EZ Insertion of Endotracheal Airway into Trachea, Via Natural or Artificial Opening (ICD-10-PCS; 2018-01-22)
PROC: 0W9D3ZZ Drainage of Pericardial Cavity, Percutaneous Approach (ICD-10-PCS; 2018-01-22)
PROC: 5A12012 Performance of Cardiac Output, Single, Manual (ICD-10-PCS; 2018-01-22)
DX: A41.9 Sepsis, unspecified organism (principal); R65.21 Severe sepsis with septic shock; N18.6 End stage renal disease; G93.40 Encephalopathy, unspecified; J96.01 Acute respiratory failure with hypoxia; I31.4 Cardiac tamponade; I13.2 Hypertensive heart and chronic kidney disease with heart failure and with stage 5 chronic kidney disease, or end stage renal disease; E87.2 Acidosis; I31.3 Pericardial effusion (noninflammatory); R57.0 Cardiogenic shock; I50.9 Heart failure, unspecified; I48.91 Unspecified atrial fibrillation; M10.9 Gout, unspecified; E03.9 Hypothyroidism, unspecified; Z99.2 Dependence on renal dialysis; Z79.01 Long term (current) use of anticoagulants; Z79.899 Other long term (current) drug therapy; Z95.810 Presence of automatic (implantable) cardiac defibrillator
CPT/HCPCS: 36415; 36416; 71045; 80048; 82805; 83605; 84484; 85025; 87040; 93005; 93010; 93306; 94002; J0171; J0282; J0461; J0696; J2001; J2405; J2543; J2704; J3370; J7050